=== PATIENT | female | born 1960 | race American Indian/Alaskan Native ===

== ENCOUNTER 2020-03-04 17:02 | Inpatient (IN) | payer MEDICAID ==
[2020-03-04] MEDS ORDERED: IPRATROPIUM 0.02% NEBU 2.5 ML IH ONE ×2 (17:19→18:23)
[2020-03-04] MEDS ORDERED: ALBUTEROL 2.5 MG/3 ML NEBU IH ONE ×2 (17:19→18:23)
--- NOTE | 2020-03-04 17:33 | Emergency Department Report ---
<MONI TALBOT - Last Filed: 03/04/20 19:27> ED Shortness of Breath HPI - General Chief Complaint: Dyspnea/Respdistress Stated Complaint: ASTHMA Time Seen by Provider: 03/04/20 17:12 Source: patient, EMS Mode of arrival: Stretcher Limitations: No Limitations - History of Present Illness Initial Comments: Patient is a 59-year-old female presents emergency room with complaints of shortness of breath that began 2 days ago. She has associated wheezing, cough, chest tightness. She denies any fever, nausea, vomiting, diarrhea. She states that she was evaluated at [facility] 2 days ago for the same symptoms and discharged home. She states that she did 3 nebulizer treatments today without any relief. She denies any home oxygen. She has a past medical history of asthma, COPD, hypertension. No allergies medications. She is a current every day smoker. EMS reports that patient is satting 80% on room air once arriving to the emergency department, patient was given 5 mg of albuterol, 10 mg of dexamethasone IM, and 2 g of magnesium IV - Related Data Allergies Allergy/AdvReac Type Severity Reaction Status Date / Time No Known Allergies Allergy Unverified 03/04/20 17:27 ED Review of Systems Comment: All other systems reviewed and negative ED Past Medical Hx - Past Medical History Previous Medical History?: Yes Hx Hypertension: Yes Hx Headaches / Migraines: Yes Hx Asthma: Yes Hx COPD: Yes - Social History Smoking Status: Current Every Day Smoker Substance Use Type: None ED Physical Exam - General Limitations: No Limitations General appearance: alert, other (moderate distress secondary to SOB) - Head Head exam: Present: atraumatic, normocephalic - Eye Eye exam: Present: normal appearance - ENT ENT exam: Present: mucous membranes dry - Respiratory Respiratory exam: Present: respiratory distress (moderate), wheezes, rhonchi, accessory muscle use. Absent: rales, stridor, chest wall tenderness - Cardiovascular Cardiovascular Exam: Present: regular rate, normal rhythm, normal heart sounds. Absent: systolic murmur, diastolic murmur, rubs, gallop - Neurological Exam Neurological exam: Present: alert, oriented X3 - Psychiatric Psychiatric exam: Present: normal affect, normal mood - Skin Skin exam: Present: warm, dry, intact ED Course - Reevaluation(s) Reevaluation #1: 03/04/20 17:33 pt refused ABG and bipap 03/04/20 19:05 on 3.5 L her oxygen saturation is 100%, still has significant wheezing 03/04/20 19:[address] Gifford, ER attending who advised the patient needs to be admitted for further care 03/04/20 19:[address] Falk, hospitalist advised to admit to oncoming hospitalist 03/04/20 19:[address] Gifford who will accept and resume care of patient and he will speak with hospitalist service ED Medical Decision Making - Lab Data Result diagrams: 03/04/20 17:22 03/04/20 17:22 Lab Results 03/04/20 03/04/20 Range/Units 17:22 17:22 WBC 8.8 (4.5-11.0) K/mm3 RBC 4.95 (3.65-5.03) M/mm3 Hgb 14.2 (10.1-14.3) gm/dl Hct 43.8 H (30.3-42.9) % MCV 88 (79-97) fl MCH 29 (28-32) pg MCHC 33 (30-34) % RDW 14.4 (13.2-15.2) % Plt Count 256 (140-440) K/mm3 Lymph % (Auto) 17.1 (13.4-35.0) % [place]ook[place] % (Auto) 6.8 (0.0-7.3) % Eos % (Auto) 1.2 (0.0-4.3) % Baso % (Auto) 0.7 (0.0-1.8) % Lymph # (Auto) 1.5 (1.2-5.4) K/mm3 [place]ook[place] # (Auto) 0.6 (0.0-0.8) K/mm3 Eos # (Auto) 0.1 (0.0-0.4) K/mm3 Baso # (Auto) 0.1 (0.0-0.1) K/mm3 Seg Neutrophils % 74.2 H (40.0-70.0) % Seg Neutrophils # 6.6 (1.8-7.7) K/mm3 Sodium 137 (137-145) mmol/L Potassium 5.0 (3.6-5.0) mmol/L Chloride 95.2 L (98-107) mmol/L Carbon Dioxide 31 H (22-30) mmol/L Anion Gap 16 mmol/L BUN 18 H (7-17) mg/dL Creatinine 0.8 (0.6-1.2) mg/dL Estimated GFR > 60 ml/min BUN/Creatinine Ratio 23 % Glucose 87 (65-100) mg/dL Calcium 9.7 (8.4-10.2) mg/dL Total Bilirubin 0.40 (0.1-1.2) mg/dL AST 21 (5-40) units/L ALT 16 (7-56) units/L Alkaline Phosphatase 94 (35-129) units/L Total Protein 7.4 (6.3-8.2) g/dL Albumin 4.4 (3.9-5) g/dL Albumin/Globulin Ratio 1.5 % - Radiology Data Radiology results: report reviewed Ordering Physician: JASMEET GREGORIO Date of Service: 03/04/20 Procedure(s): XR chest 1V ap Accession Number(s): [id number] cc: JASMEET GREGORIO Fluoro Time In Minutes: XR chest 1V ap INDICATION / CLINICAL INFORMATION: SOB COMPARISON: None available. FINDINGS: SUPPORT DEVICES: None. HEART / MEDIASTINUM: No significant abnormality. LUNGS / PLEURA: Lungs are clear. Costophrenic sulci are sharp. No pneumothorax. ADDITIONAL FINDINGS: No significant additional findings. IMPRESSION: 1. No acute findings. Signer Name: John Cabrera MD Signed: 03/04/2020 5:46 PM Workstation Name: [id number] Transcribed By: CS Dictated By: John Cabrera MD Electronically Authenticated By: John Cabrera MD Signed Date/Time: 03/04/201745 DD/ 44 TD/TT: - Differential Diagnosis Asthma, COPD, URI, PNA, CHF, pleural effusion, respiratory failure Critical Care Time: Yes Critical care time in (mins) excluding proc time.: 35 Critical Care Time: Critical care time includes multiple medication administrations, multiple reexaminations, consultations, interpretation of diagnostic and laboratory st udies ED Disposition Clinical Impression: COPD exacerbation, Hypoxia Disposition: - OP ADMIT IP TO THIS HOSP Condition: Stable Instructions: Chronic Obstructive Pulmonary Disease (ED) <ELBASHA,MOHAMED HAndrea - Last Filed: 03/04/20 22:05> ED Review of Systems ROS: Stated complaint: ASTHMA Other details as noted in HPI ED Course Vital Signs 03/04/20 03/04/20 03/04/20 17:16 17:21 18:00 Temperature 97.9 F Pulse Rate 101 H 85 Pulse Rate [ Anterior Bilateral Throughout] Respiratory 24 20 Rate Respiratory Rate [Anterior Bilateral Throughout] Blood Pressure 138/89 123/77 O2 Sat by Pulse 76 L 87 100 Oximetry 03/04/20 03/04/20 03/04/20 18:25 19:00 20:00 Temperature Pulse Rate Pulse Rate [ 90 Anterior Bilateral Throughout] Respiratory Rate Respiratory 20 Rate [Anterior Bilateral Throughout] Blood Pressure 124/89 123/77 O2 Sat by Pulse 100 91 Oximetry 03/04/20 03/04/20 03/04/20 21:00 21:30 21:43 Temperature Pulse Rate 96 H 102 H Pulse Rate [ Anterior Bilateral Throughout] Respiratory 18 20 22 Rate Respiratory Rate [Anterior Bilateral Throughout] Blood Pressure 124/89 O2 Sat by Pulse 100 87 100 Oximetry 03/04/20 21:46 Temperature Pulse Rate Pulse Rate [ Anterior Bilateral Throughout] Respiratory Rate Respiratory Rate [Anterior Bilateral Throughout] Blood Pressure O2 Sat by Pulse 100 Oximetry ED Medical Decision Making - Lab Data Result diagrams: 03/04/20 17:22 03/04/20 17:22 - Medical Decision Making Patient is a 59-year-old female presents emergency room with complaints of shortness of breath that began 2 days ago. She has associated wheezing, cough, chest tightness. She denies any fever, nausea, vomiting, diarrhea. She states that she was evaluated at [facility] 2 days ago for the same symptoms and discharged home. She states that she did 3 nebulizer treatments today without any relief. She denies any home oxygen. She has a past medical history of asthma, COPD, hypertension. No allergies medications. She is a current every day smoker. EMS reports that patient is satting 80% on room air once arriving to the emergency department, patient was given 5 mg of albuterol, 10 mg of dexamethasone IM, and 2 g of magnesium IV Labs reviewed and is unremarkable. Chest x-ray is negative for acute finding. Patient symptoms significantly improved with above-mentioned medication. Patient refused ABG and BiPAP. I discussed the patient with Dr. Vega, he agreed to admit the patient to medical service for further management. Critical care attestation.: If time is entered above; I have spent that time in minutes in the direct care of this critically ill patient, excluding procedure time. ED Disposition Is pt being admited?: Yes
--- NOTE | 2020-03-04 17:50 | XRay Report ---
XR chest 1V ap INDICATION / CLINICAL INFORMATION: SOB COMPARISON: None available. FINDINGS: SUPPORT DEVICES: None. HEART / MEDIASTINUM: No significant abnormality. LUNGS / PLEURA: Lungs are clear. Costophrenic sulci are sharp. No pneumothorax. ADDITIONAL FINDINGS: No significant additional findings. IMPRESSION: 1. No acute findings. Signer Name: John Cabrera MD Signed: 03/04/2020 5:46 PM Workstation Name: [id number]
[2020-03-04 18:15] LABS: Basophils # (Auto) 0.1 K/mm3 (0.0-0.1); Basophils % (Auto) 0.7 % (0.0-1.8); Eosinophils # (Auto) 0.1 K/mm3 (0.0-0.4); Eosinophils % (Auto) 1.2 % (0.0-4.3); Hematocrit 43.8 % (30.3-42.9); Hemoglobin 14.2 gm/dl (10.1-14.3); Lymphocytes # (Auto) 1.5 K/mm3 (1.2-5.4); Lymphocytes % (Auto) 17.1 % (13.4-35.0); Mean Corpuscular HGB Conc 33 % (30-34); Mean Corpuscular Volume 88 fl (79-97); Monocytes # (Auto) 0.6 K/mm3 (0.0-0.8); Monocytes % (Auto) 6.8 % (0.0-7.3); Platelet Count 256 K/mm3 (140-440); Red Blood Count 4.95 M/mm3 (3.65-5.03); Red Cell Distribution Width 14.4 % (13.2-15.2)
[2020-03-04 18:34] LABS: Alanine Aminotransferase 16 units/L (7-56); Albumin 4.4 g/dL (3.9-5); BUN/Creatinine Ratio 23; Blood Urea Nitrogen 18 mg/dL (7-17); Calcium 9.7 mg/dL (8.4-10.2); Hemolysis Index 31
[2020-03-04] MEDS ORDERED: MORPHINE 2 MG/1 ML INJ IV PRN (22:19)
[2020-03-04] MEDS ORDERED: MAGNESIUM HYDROXIDE (MOM) ORAL LIQD UDC PO PRN (22:19)
[2020-03-04] MEDS ORDERED: ONDANSETRON 4 MG/2 ML INJ IV PRN (22:19)
[2020-03-04] MEDS ORDERED: ACETAMINOPHEN 325 MG TAB PO PRN (22:19)
--- NOTE | 2020-03-04 22:26 | History and Physical Report ---
History of Present Illness Date of examination: 03/04/20 Date of admission: 03/04/2020 Chief complaint: Shortness of breath History of present illness: 59-year-old -[place] female with known history of hypertension and COPD presenting to the emergency room today complaining of shortness of breath which has been ongoing for the past 2 days. She has had associated cough which is nonproductive and some chest tightness. She denies any fever or chills, no nausea vomiting and no diarrhea. She denies any abdominal pain no hematuria or dysuria. She denies any sick contacts and no recent travel. She denies any contact with anyone with COVID-19. Patient indicates she was evaluated at [facility] few days ago with similar symptoms and discharged home. She has been using her nebulizer treatment without any significant improvement. Upon arrival in the emergency room today she had an O2 saturation in the 80s on room air. Patient had refused to be placed on BiPAP she also refused ABG to be drawn. She however had nebulizing treatments, IV steroid and IV magnesium and placed on Ventimask with significant improvement. Patient continues to smoke about a pack of cigarettes on a daily basis. She has been admitted with COPD exacerbation with hypoxia. Past History Past Medical History: COPD, hypertension, migraines Past Surgical History: No surgical history Social history: smoking (Current daily smoker) Family history: no significant family history Medications and Allergies Allergies Allergy/AdvReac Type Severity Reaction Status Date / Time No Known Allergies Allergy Verified 03/04/20 22:28 Review of Systems Constitutional: no fever, no chills Ears, nose, mouth and throat: no nasal congestion, no sore throat Cardiovascular: no chest pain, no palpitations Respiratory: cough, shortness of breath, wheezing Gastrointestinal: no abdominal pain, no nausea, no vomiting, no diarrhea Genitourinary Female: no flank pain, no dysuria, no hematuria Musculoskeletal: no neck pain, no low back pain Integumentary: no rash, no pruritis Neurological: no headaches, no confusion Psychiatric: no anxiety, no depression Exam - Constitutional Vitals: Temp Pulse Resp BP Pulse Ox 97.9 F 102 H 22 124/89 100 03/04/20 17:21 03/04/20 21:43 03/04/20 21:43 03/04/20 21:00 03/04/20 21:46 General appearance: Present: mild distress, well-nourished - EENT Eyes: Present: PERRL, EOM intact. Absent: scleral icterus ENT: hearing intact, clear oral mucosa, dentition normal - Neck Neck: Present: supple, normal ROM - Respiratory Respiratory effort: labored Respiratory: bilateral: wheezing - Cardiovascular Rhythm: regular Heart Sounds: Present: S1 & S2. Absent: gallop, systolic murmur, diastolic murmur, rub - Extremities Extremities: no ischemia, pulses intact, pulses symmetrical, No edema, Full ROM Peripheral Pulses: within normal limits - Abdominal General gastrointestinal: Present: soft, non-tender, non-distended, normal bowel sounds. Absent: mass - Integumentary Integumentary: Present: clear, warm, dry. Absent: rash - Musculoskeletal Musculoskeletal: strength equal bilaterally - Psychiatric Psychiatric: appropriate mood/affect, intact judgment & insight, memory intact, cooperative - Neurologic Neurologic: CNII-XII intact, no focal deficits, moves all extremities Results - Labs CBC & Chem 7: 03/04/20 17:22 03/04/20 17:22 Labs: Abnormal lab results 03/04/20 03/04/20 Range/Units 17:22 17:22 Hct 43.8 H (30.3-42.9) % Seg Neutrophils % 74.2 H (40.0-70.0) % Chloride 95.2 L (98-107) mmol/L Carbon Dioxide 31 H (22-30) mmol/L BUN 18 H (7-17) mg/dL Assessment and Plan - Patient Problems (1) COPD exacerbation Current Visit: Yes Status: Acute Plan to address problem: Patient started on nebulizing treatments and IV steroid. We will keep O2 saturation greater or equal to 94%. (2) Hypoxia Current Visit: Yes Status: Acute Plan to address problem: Patient currently on Ventimask. She refused to be placed on BiPAP. She also had refused to have ABG drawn. We will keep O2 saturation greater than equal to 92%. (3) DVT prophylaxis Current Visit: Yes Status: Acute Plan to address problem: Patient placed on subcutaneous Lovenox. (4) Full code status Current Visit: Yes Status: Acute
[2020-03-04] MEDS ORDERED: hydrALAZINE 20 MG/1 ML INJ IV PRN (22:54)
[2020-03-05] MEDS ORDERED: IPRATROPIUM/ALBUTEROL SULFATE 3 ML AMPUL.NEB IH ONE (01:42)
[2020-03-05] MEDS ORDERED: HYDROmorphone 1 MG/1 ML INJ ONE ×2 (01:42→04:03)
[2020-03-05] MEDS ORDERED: methylPREDNISolone Sod Succinate 40 MG/1 ML INJ ONE ×3 (01:42→14:02)
[2020-03-05] MEDS: methylPREDNISolone Sod Succinate 40 MG/1 ML INJ IV SCH ×3 (06:02→21:33)
--- NOTE | 2020-03-05 17:39 | Progress Note ---
Assessment and Plan Assessment and plan: COPD exacerbation Cont. on nebulizing treatments and IV steroid. We will keep O2 saturation greater or equal to 94%. Acute Hypoxic respiratory failure Patient currently on Ventimask. She refused to be placed on BiPAP. She also had refused to have ABG drawn. We will keep O2 saturation greater than equal to 92%. HTN Resume BP meds DVT prophylaxis Patient placed on subcutaneous Lovenox. Full code status History Interval history: SOB improved Hospitalist Physical - Constitutional Vitals: Temp Pulse Resp BP Pulse Ox 97.9 F 90 17 124/89 100 03/04/20 17:21 03/04/20 22:00 03/04/20 22:00 03/04/20 22:00 03/04/20 22:00 General appearance: Present: mild distress, well-nourished - EENT Eyes: Present: PERRL, EOM intact ENT: hearing intact, clear oral mucosa, dentition normal - Neck Neck: Present: supple, normal ROM - Respiratory Respiratory effort: normal Respiratory: bilateral: CTA - Cardiovascular Rhythm: regular Heart Sounds: Present: S1 & S2. Absent: gallop, rub - Extremities Extremities: no ischemia, No edema, Full ROM - Abdominal General gastrointestinal: soft, non-tender, non-distended, normal bowel sounds - Integumentary Integumentary: Present: clear, warm, dry - Neurologic Neurologic: CNII-XII intact, moves all extremities Results - Labs CBC & Chem 7: 03/04/20 17:22 03/04/20 17:22 Labs: Laboratory Last Values WBC 8.8 K/mm3 (4.5-11.0) 03/04/20 17: RBC 4.95 M/mm3 (3.65-5.03) 03/04/20 17:22 Hgb 14.2 gm/dl (10.1-14.3) 03/04/20 17: Hct 43.8 % (30.3-42.9) H 03/04/20 17:22 MCV 88 fl (79-97) 03/04/20 17:22 MCH 29 pg (28-32) 03/04/20 17:22 MCHC 33 % (30-34) 03/04/20 17: RDW 14.4 % (13.2-15.2) 03/04/20 17:22 Plt Count 256 K/mm3 (140-440) 03/04/20 17:22 Lymph % (Auto) 17.1 % (13.4-35.0) 03/04/20 17:22 [place] % (Auto) 6.8 % (0.0-7.3) 03/04/20 17:22 Eos % (Auto) 1.2 % (0.0-4.3) 03/04/20 17:22 Baso % (Auto) 0.7 % (0.0-1.8) 03/04/20 17:22 Lymph # (Auto) 1.5 K/mm3 (1.2-5.4) 03/04/20 17:22 [place] # (Auto) 0.6 K/mm3 (0.0-0.8) 03/04/20 17:22 Eos # (Auto) 0.1 K/mm3 (0.0-0.4) 03/04/20 17:22 Baso # (Auto) 0.1 K/mm3 (0.0-0.1) 03/04/20 17:22 Seg Neutrophils % 74.2 % (40.0-70.0) H 03/04/20 17:22 Seg Neutrophils # 6.6 K/mm3 (1.8-7.7) 03/04/20 17:22 Sodium 137 mmol/L (137-145) 03/04/20 17:22 Potassium 5.0 mmol/L (3.6-5.0) 03/04/20 17:22 Chloride 95.2 mmol/L (98-107) L 03/04/20 17:22 Carbon Dioxide 31 mmol/L (22-30) H 03/04/20 17:22 Anion Gap 16 mmol/L 03/04/20 17:22 BUN 18 mg/dL (7-17) H 03/04/20 17:22 Creatinine 0.8 mg/dL (0.6-1.2) 03/04/20 17:22 Estimated GFR > 60 ml/min 03/04/20 17:22 BUN/Creatinine Ratio 23 % 03/04/20 17:22 Glucose 87 mg/dL (65-100) 03/04/20 17:22 Calcium 9.7 mg/dL (8.4-10.2) 03/04/20 17:22 Total Bilirubin 0.40 mg/dL (0.1-1.2) 03/04/20 17:22 AST 21 units/L (5-40) 03/04/20 17:22 ALT 16 units/L (7-56) 03/04/20 17:22 Alkaline Phosphatase 94 units/L (35-129) 03/04/20 17:22 Total Protein 7.4 g/dL (6.3-8.2) 03/04/20 17:22 Albumin 4.4 g/dL (3.9-5) 03/04/20 17:22 Albumin/Globulin Ratio 1.5 % 03/04/20 17:22 Active Medications - Current Medications Current Medications: Generic Name Dose Route Start Last Admin Trade Name Freq PRN Reason Stop Dose Admin Acetaminophen 650 mg 03/04/20 22:19 Tylenol PO Q4H PRN Pain MILD(1-3)/Fever >100.5/CHONG Albuterol/Ipratropium 1 ampul 03/05/20 00:00 Duoneb *Not For Prn Use* IH Q4HRT [facility] Cyclobenzaprine HCl 10 mg 03/05/20 18:00 Flexeril PO 03/05/20 18:01 ONCE ONE Enoxaparin Sodium 40 mg 03/05/20 22:00 Enoxaparin SUB-Q QDAY@2200 [facility] Protocol Hydralazine HCl 10 mg 03/04/20 22:54 Apresoline IV Q4HR PRN Blood Pressure Hydromorphone HCl 0.5 mg 03/05/20 18:00 Dilaudid IV 03/05/20 18:01 ONCE ONE Magnesium Hydroxide 30 ml 03/04/20 22:19 Milk Of Magnesia PO Q4H PRN Constipation Methylprednisolone Sodium Succinate 40 mg 03/05/20 06:00 Solu-Medrol IV Q8HR [facility] Ondansetron HCl 4 mg 03/04/20 22:19 Zofran IV Q8H PRN Nausea And Vomiting Sodium Chloride 10 ml 03/05/20 10:00 Sodium Chloride Flush Syringe 10 Ml IV BID LEE Sodium Chloride 10 ml 03/04/20 22:19 Sodium Chloride Flush Syringe 10 Ml IV PRN PRN LINE FLUSH
[2020-03-05] MEDS: IPRATROPIUM/ALBUTEROL SULFATE 3 ML AMPUL.NEB IH SCH ×2 (17:47→20:51)
[2020-03-05] MEDS ORDERED: CYCLOBENZAPRINE 10 MG TAB PO ONE (18:00)
[2020-03-05] MEDS ORDERED: HYDROmorphone 1 MG/1 ML INJ IV ONE (18:00)
[2020-03-05] MEDS: oxyCODONE /ACETAMINOPHEN 5-325MG TAB PO PRN (21:33)
[2020-03-05] MEDS: ENOXAPARIN 40 MG/0.4 ML INJ SUB-Q SCH (21:34)
[2020-03-06] MEDS: IPRATROPIUM/ALBUTEROL SULFATE 3 ML AMPUL.NEB IH SCH ×7 (00:55→21:51)
[2020-03-06] MEDS: oxyCODONE /ACETAMINOPHEN 5-325MG TAB PO PRN ×3 (05:41→19:58)
[2020-03-06] MEDS: methylPREDNISolone Sod Succinate 40 MG/1 ML INJ IV SCH ×3 (05:42→21:21)
--- NOTE | 2020-03-06 08:18 | Progress Note ---
Assessment and Plan Assessment and plan: COPD exacerbation Cont. on nebulizing treatments and IV steroid. We will keep O2 saturation greater or equal to 94%. Acute Hypoxic respiratory failure Patient currently on Ventimask. She refused to be placed on BiPAP. She also had refused to have ABG drawn. We will keep O2 saturation greater than equal to 92%. HTN Resume BP meds DVT prophylaxis Patient placed on subcutaneous Lovenox. Full code status 03/06/2020. Patient still requiring large amounts of oxygen with Venturi mask 15 L/min FiO2 40%. Continue to wean oxygen as tolerated. Continue IV steroids and bronchodilators/nebulizers. Consult pulmonary for further evaluation. History Interval history: SOB improved Hospitalist Physical - Constitutional Vitals: Temp Pulse Resp BP Pulse Ox 98.2 F 91 H 18 122/72 97 03/05/20 18:27 03/06/20 05:06 03/06/20 05:06 03/05/20 18:27 03/05/20 20:57 General appearance: Present: mild distress, well-nourished - EENT Eyes: Present: PERRL, EOM intact ENT: hearing intact, clear oral mucosa, dentition normal - Neck Neck: Present: supple, normal ROM - Respiratory Respiratory effort: normal Respiratory: bilateral: CTA - Cardiovascular Rhythm: regular Heart Sounds: Present: S1 & S2. Absent: gallop, rub - Extremities Extremities: no ischemia, No edema, Full ROM - Abdominal General gastrointestinal: soft, non-tender, non-distended, normal bowel sounds - Integumentary Integumentary: Present: clear, warm, dry - Neurologic Neurologic: CNII-XII intact, moves all extremities Results - Labs CBC & Chem 7: 03/04/20 17:22 03/04/20 17:22 Labs: Laboratory Last Values WBC 8.8 K/mm3 (4.5-11.0) 03/04/20 17:22 RBC 4.95 M/mm3 (3.65-5.03) 03/04/20 17:22 Hgb 14.2 gm/dl (10.1-14.3) 03/04/20 17:22 Hct 43.8 % (30.3-42.9) H 03/04/20 17:22 MCV 88 fl (79-97) 03/04/20 17:22 MCH 29 pg (28-32) 03/04/20 17:22 MCHC 33 % (30-34) 03/04/20 17:22 RDW 14.4 % (13.2-15.2) 03/04/20 17:22 Plt Count 256 K/mm3 (140-440) 03/04/20 17:22 Lymph % (Auto) 17.1 % (13.4-35.0) 03/04/20 17:22 [place] % (Auto) 6.8 % (0.0-7.3) 03/04/20 17:22 Eos % (Auto) 1.2 % (0.0-4.3) 03/04/20 17:22 Baso % (Auto) 0.7 % (0.0-1.8) 03/04/20 17:22 Lymph # (Auto) 1.5 K/mm3 (1.2-5.4) 03/04/20 17:22 [place] # (Auto) 0.6 K/mm3 (0.0-0.8) 03/04/20 17:22 Eos # (Auto) 0.1 K/mm3 (0.0-0.4) 03/04/20 17:22 Baso # (Auto) 0.1 K/mm3 (0.0-0.1) 03/04/20 17:22 Seg Neutrophils % 74.2 % (40.0-70.0) H 03/04/20 17:22 Seg Neutrophils # 6.6 K/mm3 (1.8-7.7) 03/04/20 17:22 Sodium 137 mmol/L (137-145) 03/04/20 17:22 Potassium 5.0 mmol/L (3.6-5.0) 03/04/20 17:22 Chloride 95.2 mmol/L (98-107) L 03/04/20 17:22 Carbon Dioxide 31 mmol/L (22-30) H 03/04/20 17:22 Anion Gap 16 mmol/L 03/04/20 17:22 BUN 18 mg/dL (7-17) H 03/04/20 17:22 Creatinine 0.8 mg/dL (0.6-1.2) 03/04/20 17:22 Estimated GFR > 60 ml/min 03/04/20 17:22 BUN/Creatinine Ratio 23 % 03/04/20 17:22 Glucose 87 mg/dL (65-100) 03/04/20 17:22 Calcium 9.7 mg/dL (8.4-10.2) 03/04/20 17:22 Total Bilirubin 0.40 mg/dL (0.1-1.2) 03/04/20 17:22 AST 21 units/L (5-40) 03/04/20 17:22 ALT 16 units/L (7-56) 03/04/20 17:22 Alkaline Phosphatase 94 units/L (35-129) 03/04/20 17:22 Total Protein 7.4 g/dL (6.3-8.2) 03/04/20 17:22 Albumin 4.4 g/dL (3.9-5) 03/04/20 17:22 Albumin/Globulin Ratio 1.5 % 03/04/20 17:22 Espinoza/IV: Voiding Method External Female Catheter Active Medications - Current Medications Current Medications: Generic Name Dose Route Start Last Admin Trade Name Freq PRN Reason Stop Dose Admin Acetaminophen 650 mg 03/04/20 22:19 Tylenol PO Q4H PRN Pain MILD(1-3)/Fever >100.5/CHONG Albuterol/Ipratropium 1 ampul 03/05/20 00:00 03/06/20 08:10 Duoneb *Not For Prn Use* IH 1 ampul Q4HRT [facility] Administration Enoxaparin Sodium 40 mg 03/05/20 22:00 03/05/20 21:34 Enoxaparin SUB-Q Not Given QDAY@2200 [facility] Protocol Hydralazine HCl 10 mg 03/04/20 22:54 Apresoline IV Q4HR PRN Blood Pressure Magnesium Hydroxide 30 ml 03/04/20 22:19 Milk Of Magnesia PO Q4H PRN Constipation Methylprednisolone Sodium Succinate 40 mg 03/05/20 06:00 03/06/20 05:42 Solu-Medrol IV 40 mg Q8HR LEE Administration Ondansetron HCl 4 mg 03/04/20 22:19 Zofran IV Q8H PRN Nausea And Vomiting Oxycodone/Acetaminophen 1 tab 03/05/20 17:47 03/06/20 05:41 Percocet 5/325 PO 1 tab Q6H PRN Administration Pain, Moderate (4-6) Sodium Chloride 10 ml 03/05/20 10:00 03/05/20 21:34 Sodium Chloride Flush Syringe 10 Ml IV 10 ml BID LEE Administration Sodium Chloride 10 ml 03/04/20 22:19 Sodium Chloride Flush Syringe 10 Ml IV PRN PRN LINE FLUSH
--- NOTE | 2020-03-06 11:06 | Consultation ---
History of Present Illness Reason for consult: dyspnea, cough, COPD History of present illness: This is a 59 yo AAF w hx of copd who comes in sob. She has had exacerbations in recent past but now has increase in cough and chest congestion without sputum production. Also has wheezing. She refused abg. Feels slightly better but still sob.She has hx of current tobacco abuse Past History Past Medical History: COPD, hypertension, migraines Past Surgical History: No surgical history Social history: smoking (Current daily smoker) Family history: no significant family history Medications and Allergies Allergies Allergy/AdvReac Type Severity Reaction Status Date / Time No Known Allergies Allergy Verified 03/04/20 22:28 Active Meds: Active Medications Acetaminophen (Tylenol) 650 mg PO Q4H PRN PRN Reason: Pain MILD(1-3)/Fever >100.5/CHONG Albuterol/Ipratropium (Duoneb *Not For Prn Use*) 1 ampul IH Q4HRT [facility] Last Admin: 03/06/20 08:10 Dose: 1 ampul Documented by: Enoxaparin Sodium (Enoxaparin) 40 mg SUB-Q QDAY@2200 [facility]; Protocol Last Admin: 03/05/20 21:34 Dose: Not Given Documented by: Hydralazine HCl (Apresoline) 10 mg IV Q4HR PRN PRN Reason: Blood Pressure Magnesium Hydroxide (Milk Of Magnesia) 30 ml PO Q4H PRN PRN Reason: Constipation Methylprednisolone Sodium Succinate (Solu-Medrol) 40 mg IV Q8HR [facility] Last Admin: 03/06/20 05:42 Dose: 40 mg Documented by: Ondansetron HCl (Zofran) 4 mg IV Q8H PRN PRN Reason: Nausea And Vomiting Oxycodone/Acetaminophen (Percocet 5/325) 1 tab PO Q6H PRN PRN Reason: Pain, Moderate (4-6) Last Admin: 03/06/20 05:41 Dose: 1 tab Documented by: Sodium Chloride (Sodium Chloride Flush Syringe 10 Ml) 10 ml IV BID [facility] Last Admin: 03/05/20 21:34 Dose: 10 ml Documented by: Sodium Chloride (Sodium Chloride Flush Syringe 10 Ml) 10 ml IV PRN PRN PRN Reason: LINE FLUSH Review of Systems Constitutional: fatigue Respiratory: cough, shortness of breath, congestion, wheezing, pleurisy Gastrointestinal: indigestion Physical Examination Vital signs: Vital Signs Pulse Ox 76 L 03/04/20 17:16 General appearance: no acute distress, alert Eyes: non-icteric ENT: oropharynx moist Neck: supple Ascultation: Bilateral: wheezes (moderate) Tactile fremitus: Right: other Cardiovascular: regular rate and rhythm Gastrointestinal: normoactive bowel sounds, soft, non-tender, non-distended Integumentary: normal Extremities: no cyanosis Musculoskeletal: no deformities Gait: normal gait normal mental status, non-focal exam mood appropriate, affect normal Results - Laboratory Findings CBC and BMP: 03/04/20 17:22 03/04/20 17:22 Abnormal lab findings: Abnormal Labs 03/04/20 03/04/20 17:22 17:22 Hct 43.8 H Seg Neutrophils % 74.2 H Chloride 95.2 L Carbon Dioxide 31 H BUN 18 H - Diagnostic Findings Chest x-ray: report reviewed, image reviewed Assessment and Plan - Patient Problems (1) Acute respiratory failure with hypoxemia Current Visit: Yes Status: Acute (2) Acute bronchitis Current Visit: Yes Status: Acute (3) COPD exacerbation Current Visit: Yes Status: Acute (4) Hypoxia Current Visit: Yes Status: Acute
[2020-03-06] MEDS ORDERED: BENZONATATE 100 MG CAP PO PRN (11:11)
[2020-03-06] MEDS: ARFORMOTEROL 15 MCG/2 ML NEBU IH SCH ×2 (13:04→21:52)
[2020-03-06] MEDS: BUDESONIDE 0.25 MG/2 ML NEBU IH SCH ×2 (13:05→21:51)
[2020-03-06] MEDS: PROMETHAZINE/CODEINE 6.25-10 MG ORAL LIQD 5 ML PO PRN (21:21)
[2020-03-06] MEDS: ENOXAPARIN 40 MG/0.4 ML INJ SUB-Q SCH (21:21)
[2020-03-07] MEDS: oxyCODONE /ACETAMINOPHEN 5-325MG TAB PO PRN ×3 (02:44→19:14)
[2020-03-07] MEDS: IPRATROPIUM/ALBUTEROL SULFATE 3 ML AMPUL.NEB IH SCH ×4 (02:54→22:05)
[2020-03-07] MEDS: PROMETHAZINE/CODEINE 6.25-10 MG ORAL LIQD 5 ML PO PRN ×3 (03:40→19:15)
[2020-03-07] MEDS: methylPREDNISolone Sod Succinate 40 MG/1 ML INJ IV SCH ×3 (05:14→21:24)
[2020-03-07 06:29] LABS: Basophils % (Auto) 0.3 % (0.0-1.8); Hemoglobin 13.3 gm/dl (10.1-14.3); Lymphocytes # (Auto) 0.5 K/mm3 (1.2-5.4); Lymphocytes % (Auto) 5.7 % (13.4-35.0); Mean Corpuscular HGB Conc 33 % (30-34); Mean Corpuscular Volume 88 fl (79-97); Monocytes # (Auto) 0.3 K/mm3 (0.0-0.8); Monocytes % (Auto) 4.1 % (0.0-7.3); Platelet Count 275 K/mm3 (140-440); Red Blood Count 4.57 M/mm3 (3.65-5.03); Red Cell Distribution Width 14.8 % (13.2-15.2)
[2020-03-07 06:48] LABS: BUN/Creatinine Ratio 26; Blood Urea Nitrogen 18 mg/dL (7-17); Calcium 9.6 mg/dL (8.4-10.2); Hemolysis Index 14
[2020-03-07] MEDS: ARFORMOTEROL 15 MCG/2 ML NEBU IH SCH ×2 (07:41→22:05)
[2020-03-07] MEDS: BUDESONIDE 0.25 MG/2 ML NEBU IH SCH ×2 (07:41→22:05)
--- NOTE | 2020-03-07 17:21 | Progress Note ---
Assessment and Plan Imp: 1. COPD exac. 2. Acute bronchitis 3. Acute respiratory failure, hypoxia 4. Nicotine dependence, cigarettes Rec: 1. Cont. ABX, Solumedrol, Bronchodilators 2. Would check Covid-19 PCR given fever 3. DVT PPx 4. Stop smoking 5. Outpatient PFTs 6. Complex decision-making Plan of care reviewed w/ patient, she understands/agrees Subjective Date of service: 03/07/20 Principal diagnosis: COPD exac. Interval history: No events. Awake, alert, on VM. SOB/wheezing still. Cough with clear to yellow sputum noted. Active Medications Acetaminophen (Tylenol) 650 mg PO Q4H PRN PRN Reason: Pain MILD(1-3)/Fever >100.5/CHONG Albuterol/Ipratropium (Duoneb *Not For Prn Use*) 1 ampul IH Q6HRT [facility] Last Admin: 03/07/20 16:53 Dose: Not Given Documented by: Arformoterol Tartrate (Brovana Nebu) 15 mcg IH Q12HRT [facility] Last Admin: 03/07/20 07:41 Dose: 15 mcg Documented by: Benzonatate (Tessalon Perles) 100 mg PO Q8HR PRN PRN Reason: Cough Budesonide (Pulmicort) 0.25 mg IH Q12HRT [facility] Last Admin: 03/07/20 07:41 Dose: 0.25 mg Documented by: Enoxaparin Sodium (Enoxaparin) 40 mg SUB-Q QDAY@2200 [facility]; Protocol Last Admin: 03/06/20 21:21 Dose: 40 mg Documented by: Hydralazine HCl (Apresoline) 10 mg IV Q4HR PRN PRN Reason: Blood Pressure Levofloxacin (Levaquin) 500 mg PO Q24HR [facility] Stop: 03/12/20 12:00 Magnesium Hydroxide (Milk Of Magnesia) 30 ml PO Q4H PRN PRN Reason: Constipation Methylprednisolone Sodium Succinate (Solu-Medrol) 40 mg IV Q8HR [facility] Last Admin: 03/07/20 14:10 Dose: 40 mg Documented by: Ondansetron HCl (Zofran) 4 mg IV Q8H PRN PRN Reason: Nausea And Vomiting Oxycodone/Acetaminophen (Percocet 5/325) 1 tab PO Q6H PRN PRN Reason: Pain, Moderate (4-6) Last Admin: 03/07/20 09:22 Dose: 1 tab Documented by: Promethazine HCl/Codeine (Phenergan/Codeine 6.25-10 Mg/5ml) 5 ml PO Q6H PRN PRN Reason: Cough Last Admin: 03/07/20 09:39 Dose: 5 ml Documented by: Sodium Chloride (Sodium Chloride Flush Syringe 10 Ml) 10 ml IV BID [facility] Last Admin: 03/07/20 09:05 Dose: 10 ml Documented by: Sodium Chloride (Sodium Chloride Flush Syringe 10 Ml) 10 ml IV PRN PRN PRN Reason: LINE FLUSH Objective Vital Signs - 12hr 03/07/20 03/07/20 03/07/20 05:20 07:29 07:42 Temperature 97.7 F Pulse Rate 102 H Pulse Rate [ 86 106 H Anterior Bilateral Throughout] Respiratory 18 Rate Respiratory 19 20 Rate [Anterior Bilateral Throughout] Blood Pressure 116/98 O2 Sat by Pulse 95 Oximetry 03/07/20 12:17 Temperature 100.8 F H Pulse Rate 104 H Pulse Rate [ Anterior Bilateral Throughout] Respiratory 20 Rate Respiratory Rate [Anterior Bilateral Throughout] Blood Pressure 151/92 O2 Sat by Pulse 97 Oximetry Constitutional: no acute distress, alert Eyes: non-icteric ENT: oropharynx moist Neck: supple Ascultation: Bilateral: wheezes (moderate) Tactile fremitus: Right: other Cardiovascular: regular rate and rhythm Gastrointestinal: normoactive bowel sounds, soft, non-tender, non-distended Integumentary: normal Extremities: no cyanosis Neurologic: normal mental status, non-focal exam Psychiatric: mood appropriate, affect normal CBC and BMP: 03/07/20 06:09 03/07/20 06:09 Abnormal lab findings: Abnormal Labs 03/04/20 03/04/20 03/07/20 17:22 17:22 06:09 Hct 43.8 H Lymph % (Auto) 5.7 L Lymph # (Auto) 0.5 L Seg Neutrophils % 74.2 H 89.9 H Sodium Chloride 95.2 L Carbon Dioxide 31 H BUN 18 H Glucose 03/07/20 06:09 Hct Lymph % (Auto) Lymph # (Auto) Seg Neutrophils % Sodium 136 L Chloride 92.8 L Carbon Dioxide 36 H BUN 18 H Glucose 161 H Chest x-ray: report reviewed
[2020-03-07 18:56] LABS: ABG Base Excess 7.6 mmol/L (-2.0-3.0); ABG Methemoglobin 0.5 % (0.0-1.5); ABG PCO2 61.6 mm Hg; ABG PH 7.372 pH Units (7.350-7.450); ABG PO2 96.2 mm Hg (80.0-90.0)
[2020-03-07] MEDS: ENOXAPARIN 40 MG/0.4 ML INJ SUB-Q SCH (21:22)
[2020-03-08] MEDS: oxyCODONE /ACETAMINOPHEN 5-325MG TAB PO PRN ×3 (02:07→18:02)
[2020-03-08] MEDS: IPRATROPIUM/ALBUTEROL SULFATE 3 ML AMPUL.NEB IH SCH ×5 (03:16→21:24)
[2020-03-08] MEDS: PROMETHAZINE/CODEINE 6.25-10 MG ORAL LIQD 5 ML PO PRN ×3 (03:19→18:03)
[2020-03-08] MEDS: methylPREDNISolone Sod Succinate 40 MG/1 ML INJ IV SCH ×3 (05:33→22:39)
[2020-03-08] MEDS: BUDESONIDE 0.25 MG/2 ML NEBU IH SCH ×2 (07:55→21:24)
[2020-03-08] MEDS: ARFORMOTEROL 15 MCG/2 ML NEBU IH SCH ×2 (07:55→21:24)
[2020-03-08] MEDS: levoFLOXacin 500 MG TAB PO SCH (10:00)
--- NOTE | 2020-03-08 10:03 | Progress Note ---
Assessment and Plan - Patient Problems (1) Acute respiratory failure with hypoxemia Current Visit: Yes Status: Acute (2) Acute bronchitis Current Visit: Yes Status: Acute (3) COPD exacerbation Current Visit: Yes Status: Acute (4) Hypoxia Current Visit: Yes Status: Acute (5) Cough Current Visit: Yes Status: Acute (6) COVID-19 Current Visit: Yes Status: Suspected Subjective Principal diagnosis: COPD exac. Interval history: still with cough Objective Vital Signs - 12hr 03/07/20 03/07/20 03/08/20 22:09 22:29 03:00 Temperature 99.0 F Pulse Rate 109 H 98 H Pulse Rate [ 90 Anterior Bilateral Throughout] Respiratory 22 Rate Respiratory 20 Rate [Anterior Bilateral Throughout] Blood Pressure 141/94 O2 Sat by Pulse 95 Oximetry 03/08/20 03/08/20 03/08/20 03:16 05:04 07:55 Temperature 98.3 F Pulse Rate 81 Pulse Rate [ 98 H 100 H Anterior Bilateral Throughout] Respiratory 20 Rate Respiratory 20 20 Rate [Anterior Bilateral Throughout] Blood Pressure 136/86 O2 Sat by Pulse 100 98 Oximetry Constitutional: no acute distress, alert Eyes: non-icteric ENT: oropharynx moist Neck: supple Ascultation: Bilateral: wheezes (mild) Tactile fremitus: Right: other Cardiovascular: regular rate and rhythm Gastrointestinal: normoactive bowel sounds, soft, non-tender, non-distended Integumentary: normal Extremities: no cyanosis Neurologic: normal mental status, non-focal exam Psychiatric: mood appropriate, affect normal CBC and BMP: 03/07/20 06:09 03/07/20 06:09 ABG, PT/INR, D-dimer: ABG ABG pH 7.372 pH Units (7.350-7.450) 03/07/20 18:25 ABG pCO2 61.6 mm Hg 03/07/20 18:25 ABG pO2 96.2 mm Hg (80.0-90.0) H 03/07/20 18:25 ABG O2 Saturation 97.0 % (95.0-99.0) 03/07/20 18:25 Abnormal lab findings: Abnormal Labs 03/04/20 03/04/20 03/07/20 17:22 17:22 06:09 Hct 43.8 H Lymph % (Auto) 5.7 L Lymph # (Auto) 0.5 L Seg Neutrophils % 74.2 H 89.9 H ABG pO2 ABG HCO3 ABG Base Excess Sodium Chloride 95.2 L Carbon Dioxide 31 H BUN 18 H Glucose 03/07/20 03/07/20 06:09 18:25 Hct Lymph % (Auto) Lymph # (Auto) Seg Neutrophils % ABG pO2 96.2 H ABG HCO3 35.0 H ABG Base Excess 7.6 H Sodium 136 L Chloride 92.8 L Carbon Dioxide 36 H BUN 18 H Glucose 161 H
[2020-03-08 11:39] LABS: BUN/Creatinine Ratio 25; Blood Urea Nitrogen 20 mg/dL (7-17); Calcium 9.5 mg/dL (8.4-10.2); Hemolysis Index 7
--- NOTE | 2020-03-08 17:27 | Progress Note ---
Assessment and Plan - Patient Problems (1) COPD exacerbation Current Visit: Yes Status: Acute Plan to address problem: Patient was hypoxic in the ED and refused her BiPAP however marked improvement was noted on Ventimask Supplemental oxygen as needed Corey Campbell DuoNeb scheduled IV steroid therapy Pulmonary consult Pulmonary hygiene EMMANUEL Brito (2) Acute respiratory failure with hypoxemia Current Visit: Yes Status: Acute Plan to address problem: On presentation patient was satting in the 80s on room air in the ED Supplemental oxygen as needed Pulmonary hygiene Trend SPO2 (3) COVID-19 Current Visit: Yes Status: Ruled-out Plan to address problem: 03/08 COVID-19 PCR negative (4) Hyponatremia Current Visit: Yes Status: Acute Plan to address problem: Admit sodium on 03/04 was 137 03/07 and 03/08 sodium 136 Slight decrease Continue to monitor neuro checks Trend BMP (5) Hypochloremia Current Visit: Yes Status: Acute Plan to address problem: Admit chloride 95.2, 03/07 92.8, 03/08 91.2 Continue to monitor Trend BMP (6) Hypertension Current Visit: Yes Status: Chronic Plan to address problem: Home medications reviewed, patient has no home medications listed, will ask nurse to update 03/08 started on Amlodipine low-dose, titrate as needed As needed IV hydralazine for SBP greater than 160 Blood pressure monitor per protocol (7) DVT prophylaxis Current Visit: Yes Status: Acute Plan to address problem: SCDs to bilateral extremities while in bed Lovenox subcu History Interval history: 59-year-old -[place] female with HTN, COPD, current cigarette smoker of 1 PPD presented to the emergency department on 03/05 with complaints of shortness of breath ongoing for 2 days with an associated nonproductive cough, chest tightness and without improvement with 10 days of treatment. Patient states that she was discharged from OSH few days before presentation. Upon arrival to the emergency department she had acute hypoxemic respiratory failure with SPO2 in the 80s on room air. She refused to be placed on BiPAP and refused ABG however she had nebulizing treatments, IV steroids and IV magnesium and was placed on a Ventimask with significant improvement. Patient was admitted to the hospital with COPD exacerbation and acute hypoxic respiratory failure. Today on examination she has her Ventimask in place. Her COVID-19 PCR resulted as negative today. Patient states that she feels better. 03/05: patient remained on the Ventimask and continue to refuse her BiPAP and ABG. 03/06: Ventimask 40% / 15 L, pulmonary consulted Hospitalist Physical - Constitutional Vitals: Temp Pulse Resp BP Pulse Ox 97.8 F 91 H 18 151/96 100 03/08/20 16:14 03/08/20 16:14 03/08/20 16:14 03/08/20 16:14 03/08/20 16:14 General appearance: Present: no acute distress, well-nourished - EENT Eyes: Present: PERRL, EOM intact ENT: hearing intact, clear oral mucosa - Neck Neck: Present: supple, normal ROM - Respiratory Respiratory effort: normal Respiratory: bilateral: diminished - Cardiovascular Rhythm: regular Heart Sounds: Present: S1 & S2. Absent: systolic murmur, diastolic murmur - Extremities Extremities: no ischemia, pulses intact, pulses symmetrical, No edema, normal temperature, normal color, Full ROM Peripheral Pulses: within normal limits - Abdominal General gastrointestinal: soft, non-tender, non-distended, normal bowel sounds - Integumentary Integumentary: Present: clear, warm, dry - Psychiatric Psychiatric: cooperative - Neurologic Neurologic: CNII-XII intact, no focal deficits, moves all extremities Results - Labs CBC & Chem 7: 03/07/20 06:09 03/08/20 10:54 Labs: Laboratory Last Values WBC 8.1 K/mm3 (4.5-11.0) 03/07/20 06:09 RBC 4.57 M/mm3 (3.65-5.03) 03/07/20 06:09 Hgb 13.3 gm/dl (10.1-14.3) 03/07/20 06:09 Hct 40.0 % (30.3-42.9) 03/07/20 06:09 MCV 88 fl (79-97) 03/07/20 06:09 MCH 29 pg (28-32) 03/07/20 06:09 MCHC 33 % (30-34) 03/07/20 06:09 RDW 14.8 % (13.2-15.2) 03/07/20 06:09 Plt Count 275 K/mm3 (140-440) 03/07/20 06:09 Lymph % (Auto) 5.7 % (13.4-35.0) L 03/07/20 06:09 [place] % (Auto) 4.1 % (0.0-7.3) 03/07/20 06:09 Eos % (Auto) 0.0 % (0.0-4.3) 03/07/20 06:09 Baso % (Auto) 0.3 % (0.0-1.8) 03/07/20 06:09 Lymph # (Auto) 0.5 K/mm3 (1.2-5.4) L 03/07/20 06:09 [place] # (Auto) 0.3 K/mm3 (0.0-0.8) 03/07/20 06:09 Eos # (Auto) 0.0 K/mm3 (0.0-0.4) 03/07/20 06:09 Baso # (Auto) 0.0 K/mm3 (0.0-0.1) 03/07/20 06:09 Seg Neutrophils % 89.9 % (40.0-70.0) H 03/07/20 06:09 Seg Neutrophils # 7.2 K/mm3 (1.8-7.7) 03/07/20 06:09 ABG pH 7.372 pH Units (7.350-7.450) 03/07/20 18:25 ABG pCO2 61.6 mm Hg 03/07/20 18:25 ABG pO2 96.2 mm Hg (80.0-90.0) H 03/07/20 18:25 ABG HCO3 35.0 mmol/L (20.0-26.0) H 03/07/20 18:25 ABG O2 Saturation 97.0 % (95.0-99.0) 03/07/20 18:25 ABG O2 Content 18.4 (0.0-44) 03/07/20 18:25 ABG Base Excess 7.6 mmol/L (-2.0-3.0) H 03/07/20 18:25 ABG Hemoglobin 13.7 gm/dl (12.0-16.0) 03/07/20 18:25 ABG Carboxyhemoglobin 1.2 % (0.0-5.0) 03/07/20 18:25 ABG Methemoglobin 0.5 % (0.0-1.5) 03/07/20 18:25 Oxyhemoglobin 95.4 % (95.0-99.0) 03/07/20 18:25 FiO2 31 % 03/07/20 18:25 Sodium 136 mmol/L (137-145) L 03/08/20 10:54 Potassium 4.3 mmol/L (3.6-5.0) 03/08/20 10:54 Chloride 91.2 mmol/L (98-107) L 03/08/20 10:54 Carbon Dioxide 37 mmol/L (22-30) H 03/08/20 10:54 Anion Gap 12 mmol/L 03/08/20 10:54 BUN 20 mg/dL (7-17) H 03/08/20 10:54 Creatinine 0.8 mg/dL (0.6-1.2) 03/08/20 10:54 Estimated GFR > 60 ml/min 03/08/20 10:54 BUN/Creatinine Ratio 25 % 03/08/20 10:54 Glucose 204 mg/dL (65-100) H 03/08/20 10:54 Calcium 9.5 mg/dL (8.4-10.2) 03/08/20 10:54 Total Bilirubin 0.40 mg/dL (0.1-1.2) 03/04/20 17:22 AST 21 units/L (5-40) 03/04/20 17:22 ALT 16 units/L (7-56) 03/04/20 17:22 Alkaline Phosphatase 94 units/L (35-129) 03/04/20 17:22 Total Protein 7.4 g/dL (6.3-8.2) 03/04/20 17:22 Albumin 4.4 g/dL (3.9-5) 03/04/20 17:22 Albumin/Globulin Ratio 1.5 % 03/04/20 17:22 Coronavirus (PCR) Negative (Negative) 03/08/20 Unknown Espinoza/IV: Voiding Method Toilet IV Catheter Type [Left Hand] INT / Saline Lock Active Medications - Current Medications Current Medications: Generic Name Dose Route Start Last Admin Trade Name Freq PRN Reason Stop Dose Admin Acetaminophen 650 mg 03/04/20 22:19 Tylenol PO Q4H PRN Pain MILD(1-3)/Fever >100.5/CHONG Albuterol/Ipratropium 1 ampul 03/06/20 20:00 03/08/20 17:04 Duoneb *Not For Prn Use* IH 1 ampul Q6HRT [facility] Administration Arformoterol Tartrate 15 mcg 03/06/20 11:15 03/08/20 07:55 Brovana Nebu IH 15 mcg Q12HRT [facility] Administration Benzonatate 100 mg 03/06/20 11:11 Tessalon Perles PO Q8HR PRN Cough Budesonide 0.25 mg 03/06/20 11:15 03/08/20 07:55 Pulmicort IH 0.25 mg Q12HRT [facility] Administration Enoxaparin Sodium 40 mg 03/05/20 22:00 03/07/20 21:22 Enoxaparin SUB-Q Not Given QDAY@2200 [facility] Protocol Hydralazine HCl 10 mg 03/04/20 22:54 Apresoline IV Q4HR PRN Blood Pressure Levofloxacin 500 mg 03/08/20 10:00 03/08/20 10:00 Levaquin PO 03/12/20 12:00 500 mg Q24HR [facility] Administration Magnesium Hydroxide 30 ml 03/04/20 22:19 Milk Of Magnesia PO Q4H PRN Constipation Methylprednisolone Sodium Succinate 40 mg 03/05/20 06:00 03/08/20 14:39 Solu-Medrol IV 40 mg Q8HR [facility] Administration Ondansetron HCl 4 mg 03/04/20 22:19 Zofran IV Q8H PRN Nausea And Vomiting Oxycodone/Acetaminophen 1 tab 03/05/20 17:47 03/08/20 11:10 Percocet 5/325 PO 1 tab Q6H PRN Administration Pain, Moderate (4-6) Promethazine HCl/Codeine 5 ml 03/06/20 11:10 03/08/20 11:10 Phenergan/Codeine 6.25-10 Mg/5ml PO 5 ml Q6H PRN Administration Cough Sodium Chloride 10 ml 03/05/20 10:00 03/08/20 10:00 Sodium Chloride Flush Syringe 10 Ml IV 10 ml BID [facility] Administration Sodium Chloride 10 ml 03/04/20 22:19 Sodium Chloride Flush Syringe 10 Ml IV PRN PRN LINE FLUSH
[2020-03-08] MEDS ORDERED: amLODIPine 5 MG TAB PO SCH (18:00)
[2020-03-08] MEDS: ENOXAPARIN 40 MG/0.4 ML INJ SUB-Q SCH (22:39)
[2020-03-08] MEDS: amLODIPine 5 MG TAB PO SCH (22:39)
[2020-03-09] MEDS: oxyCODONE /ACETAMINOPHEN 5-325MG TAB PO PRN ×3 (00:09→22:08)
[2020-03-09] MEDS: PROMETHAZINE/CODEINE 6.25-10 MG ORAL LIQD 5 ML PO PRN ×3 (01:19→21:04)
[2020-03-09] MEDS: IPRATROPIUM/ALBUTEROL SULFATE 3 ML AMPUL.NEB IH SCH ×4 (03:25→20:42)
[2020-03-09 05:07] LABS: Blood Urea Nitrogen 22 mg/dL (7-17); Calcium 9.6 mg/dL (8.4-10.2); Hemolysis Index 39
[2020-03-09 05:15] LABS: BUN/Creatinine Ratio 31
[2020-03-09] MEDS: methylPREDNISolone Sod Succinate 40 MG/1 ML INJ IV SCH ×3 (05:51→21:05)
[2020-03-09] MEDS: amLODIPine 5 MG TAB PO SCH (09:00)
[2020-03-09] MEDS: levoFLOXacin 500 MG TAB PO SCH (09:00)
[2020-03-09] MEDS: BUDESONIDE 0.25 MG/2 ML NEBU IH SCH ×2 (09:34→20:42)
[2020-03-09] MEDS: ARFORMOTEROL 15 MCG/2 ML NEBU IH SCH ×2 (09:35→20:42)
--- NOTE | 2020-03-09 13:55 | Progress Note ---
Assessment and Plan Impression: Imp: 1. COPD exac. 2. Acute bronchitis 3. Acute respiratory failure, hypoxia and hypercapnia 4. Nicotine dependence, cigarettes Rec: 1. Cont. ABX, Solumedrol, Bronchodilators 2. Would check Covid-19 PCR given fever 3. DVT PPx 4. Stop smoking 5. Outpatient PFTs Subjective Date of service: 03/09/20 Principal diagnosis: COPD exac. Interval history: Patient reports feeling better with improving shortness of breath. Still very dyspneic on exertion. Still on O2 Objective Vital Signs - 12hr 03/09/20 03/09/20 03/09/20 03:00 04:56 05:50 Pulse Rate 85 87 Pulse Rate [ 94 H Anterior Bilateral Throughout] Pulse Rate [ Posterior Bilateral Throughout] Respiratory 20 18 Rate Respiratory 18 Rate [Anterior Bilateral Throughout] Respiratory Rate [Posterior Bilateral Throughout] Blood Pressure 142/76 O2 Sat by Pulse 91 99 Oximetry 03/09/20 03/09/20 03/09/20 09:00 09:38 09:40 Pulse Rate 87 Pulse Rate [ Anterior Bilateral Throughout] Pulse Rate [ 101 H Posterior Bilateral Throughout] Respiratory Rate Respiratory Rate [Anterior Bilateral Throughout] Respiratory 18 Rate [Posterior Bilateral Throughout] Blood Pressure 142/76 O2 Sat by Pulse 96 Oximetry Constitutional: no acute distress, alert Eyes: non-icteric ENT: oropharynx moist Neck: supple Ascultation: Bilateral: wheezes (mild) Tactile fremitus: Right: other Cardiovascular: regular rate and rhythm Gastrointestinal: normoactive bowel sounds, soft, non-tender, non-distended Integumentary: normal Extremities: no cyanosis Neurologic: normal mental status, non-focal exam Psychiatric: mood appropriate, affect normal CBC and BMP: 03/07/20 06:09 03/09/20 04:27 ABG, PT/INR, D-dimer: ABG ABG pH 7.372 pH Units (7.350-7.450) 03/07/20 18:25 ABG pCO2 61.6 mm Hg 03/07/20 18:25 ABG pO2 96.2 mm Hg (80.0-90.0) H 03/07/20 18:25 ABG O2 Saturation 97.0 % (95.0-99.0) 03/07/20 18:25 Abnormal lab findings: Abnormal Labs 03/04/20 03/04/20 03/07/20 17:22 17:22 06:09 Hct 43.8 H Lymph % (Auto) 5.7 L Lymph # (Auto) 0.5 L Seg Neutrophils % 74.2 H 89.9 H ABG pO2 ABG HCO3 ABG Base Excess Sodium Chloride 95.2 L Carbon Dioxide 31 H BUN 18 H Glucose 03/07/20 03/07/20 03/08/20 06:09 18:25 10:54 Hct Lymph % (Auto) Lymph # (Auto) Seg Neutrophils % ABG pO2 96.2 H ABG HCO3 35.0 H ABG Base Excess 7.6 H Sodium 136 L 136 L Chloride 92.8 L 91.2 L Carbon Dioxide 36 H 37 H BUN 18 H 20 H Glucose 161 H 204 H 03/09/20 04:27 Hct Lymph % (Auto) Lymph # (Auto) Seg Neutrophils % ABG pO2 ABG HCO3 ABG Base Excess Sodium Chloride 94.9 L Carbon Dioxide 34 H BUN 22 H Glucose 150 H
[2020-03-09] MEDS: ENOXAPARIN 40 MG/0.4 ML INJ SUB-Q SCH (21:13)
[2020-03-10] MEDS: MELATONIN 5 MG TAB PO PRN ×2 (00:10→22:42)
[2020-03-10] MEDS ORDERED: CYCLOBENZAPRINE 10 MG TAB PO ONE (00:15)
[2020-03-10] MEDS: IPRATROPIUM/ALBUTEROL SULFATE 3 ML AMPUL.NEB IH SCH ×4 (02:25→21:37)
[2020-03-10] MEDS: methylPREDNISolone Sod Succinate 40 MG/1 ML INJ IV SCH (05:48)
[2020-03-10] MEDS: BUDESONIDE 0.25 MG/2 ML NEBU IH SCH ×2 (07:42→21:37)
[2020-03-10] MEDS: ARFORMOTEROL 15 MCG/2 ML NEBU IH SCH ×2 (07:43→21:37)
[2020-03-10] MEDS: amLODIPine 5 MG TAB PO SCH ×2 (08:47→14:49)
[2020-03-10] MEDS: levoFLOXacin 500 MG TAB PO SCH ×2 (08:47→14:48)
[2020-03-10] MEDS: oxyCODONE /ACETAMINOPHEN 5-325MG TAB PO PRN ×2 (08:48→15:20)
[2020-03-10] MEDS: PROMETHAZINE/CODEINE 6.25-10 MG ORAL LIQD 5 ML PO PRN ×3 (09:04→22:42)
--- NOTE | 2020-03-10 12:30 | Progress Note ---
Assessment and Plan Impression: Imp: 1. COPD exac. 2. Acute bronchitis 3. Acute respiratory failure, hypoxia and hypercapnia 4. Nicotine dependence, cigarettes Rec: 1. Cont. ABX, Solumedrol, Bronchodilators. Taper steroids switch over to prednisone tomorrow 2. Would check Covid-19 PCR given fever 3. DVT PPx 4. Stop smoking 5. Outpatient PFTs Subjective Date of service: 03/10/20 Principal diagnosis: COPD exac. Interval history: Patient reports feeling better with improving shortness of breath. Still dyspneic on exertion. Comfortable on room air Objective Vital Signs - 12hr 03/10/20 03/10/20 03/10/20 02:26 02:40 05:18 Temperature 97.7 F Pulse Rate 96 H Pulse Rate [ 92 H Anterior Bilateral Throughout] Pulse Rate [ 92 H Posterior Bilateral Throughout] Respiratory 20 Rate Respiratory 18 Rate [Anterior Bilateral Throughout] Respiratory 18 Rate [Posterior Bilateral Throughout] Blood Pressure 152/94 O2 Sat by Pulse 99 Oximetry 03/10/20 03/10/20 03/10/20 08:10 08:24 08:47 Temperature Pulse Rate 96 H Pulse Rate [ Anterior Bilateral Throughout] Pulse Rate [ 96 H Posterior Bilateral Throughout] Respiratory Rate Respiratory Rate [Anterior Bilateral Throughout] Respiratory 20 Rate [Posterior Bilateral Throughout] Blood Pressure 150/84 O2 Sat by Pulse 99 Oximetry 03/10/20 10:00 Temperature Pulse Rate Pulse Rate [ Anterior Bilateral Throughout] Pulse Rate [ Posterior Bilateral Throughout] Respiratory Rate Respiratory Rate [Anterior Bilateral Throughout] Respiratory Rate [Posterior Bilateral Throughout] Blood Pressure O2 Sat by Pulse 98 Oximetry Constitutional: no acute distress, alert Eyes: non-icteric ENT: oropharynx moist Neck: supple Ascultation: Bilateral: wheezes (mild) Tactile fremitus: Right: other Cardiovascular: regular rate and rhythm Gastrointestinal: normoactive bowel sounds, soft, non-tender, non-distended Integumentary: normal Extremities: no cyanosis Neurologic: normal mental status, non-focal exam Psychiatric: mood appropriate, affect normal CBC and BMP: 03/07/20 06:09 03/09/20 04:27 ABG, PT/INR, D-dimer: ABG ABG pH 7.372 pH Units (7.350-7.450) 03/07/20 18:25 ABG pCO2 61.6 mm Hg 03/07/20 18:25 ABG pO2 96.2 mm Hg (80.0-90.0) H 03/07/20 18:25 ABG O2 Saturation 97.0 % (95.0-99.0) 03/07/20 18:25 Abnormal lab findings: Abnormal Labs 03/04/20 03/04/20 03/07/20 17:22 17:22 06:09 Hct 43.8 H Lymph % (Auto) 5.7 L Lymph # (Auto) 0.5 L Seg Neutrophils % 74.2 H 89.9 H ABG pO2 ABG HCO3 ABG Base Excess Sodium Chloride 95.2 L Carbon Dioxide 31 H BUN 18 H Glucose 03/07/20 03/07/20 03/08/20 06:09 18:25 10:54 Hct Lymph % (Auto) Lymph # (Auto) Seg Neutrophils % ABG pO2 96.2 H ABG HCO3 35.0 H ABG Base Excess 7.6 H Sodium 136 L 136 L Chloride 92.8 L 91.2 L Carbon Dioxide 36 H 37 H BUN 18 H 20 H Glucose 161 H 204 H 03/09/20 04:27 Hct Lymph % (Auto) Lymph # (Auto) Seg Neutrophils % ABG pO2 ABG HCO3 ABG Base Excess Sodium Chloride 94.9 L Carbon Dioxide 34 H BUN 22 H Glucose 150 H
--- NOTE | 2020-03-10 12:42 | Progress Note ---
Assessment and Plan (1) COPD exacerbation Current Visit: Yes Status: Acute Plan to address problem: Patient was hypoxic in the ED and refused her BiPAP however marked improvement was noted on Ventimask Supplemental oxygen as needed Corey Campbell DuoNeb scheduled IV steroid therapy Pulmonary consult Pulmonary hygiene EMMANUEL Brito (2) Acute respiratory failure with hypoxemia Current Visit: Yes Status: Acute Plan to address problem: On presentation patient was satting in the 80s on room air in the ED Supplemental oxygen as needed Pulmonary hygiene Trend SPO2 (3) COVID-19 Current Visit: Yes Status: Ruled-out Plan to address problem: 03/08 COVID-19 PCR negative (4) Hyponatremia Current Visit: Yes Status: Acute Plan to address problem: Admit sodium on 03/04 was 137 03/07 and 03/08 sodium 136 Slight decrease Continue to monitor neuro checks Trend BMP (5) Hypochloremia Current Visit: Yes Status: Acute Plan to address problem: Admit chloride 95.2, 03/07 92.8, 03/08 91.2 Continue to monitor Trend BMP (6) Hypertension Current Visit: Yes Status: Chronic Plan to address problem: Home medications reviewed, patient has no home medications listed, will ask nurse to update 03/08 started on Amlodipine low-dose, titrate as needed As needed IV hydralazine for SBP greater than 160 Blood pressure monitor per protocol (7) DVT prophylaxis Current Visit: Yes Status: Acute Plan to address problem: SCDs to bilateral extremities while in bed Lovenox subcu Subjective Date of service: 03/09/20 Principal diagnosis: COPD exac. Interval history: Patient continues to be wheezing. Some improvement Objective - Constitutional Vitals: Vital Signs - 12hr 03/10/20 03/10/20 03/10/20 02:26 02:40 05:18 Temperature 97.7 F Pulse Rate 96 H Pulse Rate [ 92 H Anterior Bilateral Throughout] Pulse Rate [ 92 H Posterior Bilateral Throughout] Respiratory 20 Rate Respiratory 18 Rate [Anterior Bilateral Throughout] Respiratory 18 Rate [Posterior Bilateral Throughout] Blood Pressure 152/94 O2 Sat by Pulse 99 Oximetry 03/10/20 03/10/20 03/10/20 08:10 08:24 08:47 Temperature Pulse Rate 96 H Pulse Rate [ Anterior Bilateral Throughout] Pulse Rate [ 96 H Posterior Bilateral Throughout] Respiratory Rate Respiratory Rate [Anterior Bilateral Throughout] Respiratory 20 Rate [Posterior Bilateral Throughout] Blood Pressure 150/84 O2 Sat by Pulse 99 Oximetry 03/10/20 10:00 Temperature Pulse Rate Pulse Rate [ Anterior Bilateral Throughout] Pulse Rate [ Posterior Bilateral Throughout] Respiratory Rate Respiratory Rate [Anterior Bilateral Throughout] Respiratory Rate [Posterior Bilateral Throughout] Blood Pressure O2 Sat by Pulse 98 Oximetry General appearance: Present: mild distress, well-nourished - EENT Eyes: PERRL, EOM intact ENT: hearing intact, clear oral mucosa Ears: bilateral: normal - Neck Neck: supple, normal ROM - Respiratory Respiratory effort: normal Respiratory: bilateral: CTA, negative: rhonchi, wheezing - Breasts Breasts: normal - Cardiovascular Heart rate: 78 Rhythm: regular Heart Sounds: Present: S1 & S2. Absent: gallop, rub Extremities: pulses intact, No edema, normal color, Full ROM - Gastrointestinal General gastrointestinal: Present: soft, non-tender, non-distended, normal bowel sounds - Genitourinary Female genitourinary: normal - Integumentary Integumentary: clear, warm, dry - Musculoskeletal Musculoskeletal: 1, strength equal bilaterally - Neurologic Neurologic: moves all extremities - Psychiatric Psychiatric: memory intact, appropriate mood/affect, intact judgment & insight - Allied health notes Allied health notes reviewed: nursing, case management - Labs CBC & Chem 7: 03/07/20 06:09 03/09/20 04:27
--- NOTE | 2020-03-10 12:48 | Progress Note ---
Assessment and Plan (1) COPD exacerbation Current Visit: Yes Status: Acute Plan to address problem: Patient was hypoxic in the ED and refused her BiPAP however marked improvement was noted on Ventimask Supplemental oxygen as needed Corey Campbell DuoNeb scheduled IV steroid therapy Pulmonary consult Pulmonary hygiene [facility] Patient still wheezing Possible discharge tomorrow if symptomatically much improved (2) Acute respiratory failure with hypoxemia Current Visit: Yes Status: Acute Plan to address problem: On presentation patient was satting in the 80s on room air in the ED Supplemental oxygen as needed Pulmonary hygiene Trend SPO2 (3) COVID-19 Current Visit: Yes Status: Ruled-out Plan to address problem: 03/08 COVID-19 PCR negative (4) Hyponatremia Current Visit: Yes Status: Acute Plan to address problem: Admit sodium on 03/04 was 137 03/07 and 03/08 sodium 136 Slight decrease Continue to monitor neuro checks Trend BMP (5) Hypochloremia Current Visit: Yes Status: Acute Plan to address problem: Admit chloride 95.2, 03/07 92.8, 03/08 91.2 Continue to monitor Trend BMP (6) Hypertension Current Visit: Yes Status: Chronic Plan to address problem: Home medications reviewed, patient has no home medications listed, will ask nurse to update 03/08 started on Amlodipine low-dose, titrate as needed As needed IV hydralazine for SBP greater than 160 Blood pressure monitor per protocol (7) DVT prophylaxis Current Visit: Yes Status: Acute Plan to address problem: SCDs to bilateral extremities while in bed Lovenox subcu Subjective Date of service: 03/10/20 Principal diagnosis: COPD exac. Interval history: Patient continues to be wheezing. Some improvement Patient still wheezing and tachypneic Low-grade fever Objective - Constitutional Vitals: Vital Signs - 12hr 03/10/20 03/10/20 03/10/20 02:26 02:40 05:18 Temperature 97.7 F Pulse Rate 96 H Pulse Rate [ 92 H Anterior Bilateral Throughout] Pulse Rate [ 92 H Posterior Bilateral Throughout] Respiratory 20 Rate Respiratory 18 Rate [Anterior Bilateral Throughout] Respiratory 18 Rate [Posterior Bilateral Throughout] Blood Pressure 152/94 O2 Sat by Pulse 99 Oximetry 03/10/20 03/10/20 03/10/20 08:10 08:24 08:47 Temperature Pulse Rate 96 H Pulse Rate [ Anterior Bilateral Throughout] Pulse Rate [ 96 H Posterior Bilateral Throughout] Respiratory Rate Respiratory Rate [Anterior Bilateral Throughout] Respiratory 20 Rate [Posterior Bilateral Throughout] Blood Pressure 150/84 O2 Sat by Pulse 99 Oximetry 03/10/20 10:00 Temperature Pulse Rate Pulse Rate [ Anterior Bilateral Throughout] Pulse Rate [ Posterior Bilateral Throughout] Respiratory Rate Respiratory Rate [Anterior Bilateral Throughout] Respiratory Rate [Posterior Bilateral Throughout] Blood Pressure O2 Sat by Pulse 98 Oximetry General appearance: Present: mild distress, well-nourished - EENT Eyes: PERRL, EOM intact ENT: hearing intact, clear oral mucosa Ears: bilateral: normal - Neck Neck: supple, normal ROM - Respiratory Respiratory effort: normal Respiratory: bilateral: CTA, rhonchi, wheezing - Breasts Breasts: normal - Cardiovascular Heart rate: 78 Rhythm: regular Heart Sounds: Present: S1 & S2. Absent: gallop, rub Extremities: pulses intact, No edema, normal color, Full ROM - Gastrointestinal General gastrointestinal: Present: soft, non-tender, non-distended, normal bowel sounds - Genitourinary Female genitourinary: normal - Integumentary Integumentary: clear, warm, dry - Musculoskeletal Musculoskeletal: 1, strength equal bilaterally - Neurologic Neurologic: moves all extremities - Psychiatric Psychiatric: memory intact, appropriate mood/affect, intact judgment & insight - Labs CBC & Chem 7: 03/07/20 06:09 03/09/20 04:27
[2020-03-10] MEDS ORDERED: CYCLOBENZAPRINE 10 MG TAB PO PRN (18:48)
[2020-03-10] MEDS: ENOXAPARIN 40 MG/0.4 ML INJ SUB-Q SCH (21:03)
[2020-03-11] MEDS: IPRATROPIUM/ALBUTEROL SULFATE 3 ML AMPUL.NEB IH SCH ×5 (01:57→20:49)
[2020-03-11] MEDS: BUDESONIDE 0.25 MG/2 ML NEBU IH SCH ×2 (06:33→08:26)
[2020-03-11] MEDS: ARFORMOTEROL 15 MCG/2 ML NEBU IH SCH ×3 (06:33→20:47)
[2020-03-11] MEDS ORDERED: BUDESONIDE 0.25 MG/2 ML NEBU IH SCH (08:24)
[2020-03-11] MEDS: predniSONE 20 MG TAB PO SCH (09:05)
[2020-03-11] MEDS: oxyCODONE /ACETAMINOPHEN 5-325MG TAB PO PRN ×2 (09:06→20:06)
[2020-03-11] MEDS: levoFLOXacin 500 MG TAB PO SCH (09:06)
[2020-03-11] MEDS: amLODIPine 5 MG TAB PO SCH (09:06)
[2020-03-11] MEDS: PROMETHAZINE/CODEINE 6.25-10 MG ORAL LIQD 5 ML PO PRN ×2 (09:12→20:07)
--- NOTE | 2020-03-11 09:40 | Progress Note ---
Assessment and Plan - Patient Problems (1) Acute bronchitis Current Visit: Yes Status: Acute Plan to address problem: Continue pulmonary hygiene Continue pulmonary regimen P.o. Levaquin (2) COPD exacerbation Current Visit: Yes Status: Acute Plan to address problem: Patient was hypoxic in the ED and refused her BiPAP however marked improvement was noted on Ventimask Supplemental oxygen as needed Corey Campbell, Kevin scheduled IV steroid therapy, changed to PO Pulmonary consult Pulmonary hygiene PO Levaquin (3) Acute respiratory failure with hypoxemia Current Visit: Yes Status: Acute Plan to address problem: On presentation patient was satting in the 80s on room air in the ED Supplemental oxygen as needed Pulmonary hygiene Trend SPO2 (4) COVID-19 Current Visit: Yes Status: Ruled-out Plan to address problem: 03/08 COVID-19 PCR negative (5) Hyponatremia Current Visit: Yes Status: Resolved Plan to address problem: Admit sodium on 03/04 was 137 03/07 and 03/08 sodium 136, 03/09 Na 138 Slight decrease Continue to monitor neuro checks Trend BMP (6) Hypochloremia Current Visit: Yes Status: Acute Plan to address problem: Admit chloride 95.2, 03/07 92.8, 03/08 91.2, 03/09 94.9 Continue to monitor Trend BMP (7) Hypertension Current Visit: Yes Status: Chronic Plan to address problem: Home medications reviewed, patient has no home medications listed, will ask nurse to update 03/08 started on Amlodipine low-dose, titrate as needed - 03/11, started on metoprolol for persistent tachycardia As needed IV hydralazine for SBP greater than 160 Blood pressure monitor per protocol (8) DVT prophylaxis Current Visit: Yes Status: Acute Plan to address problem: SCDs to bilateral extremities while in bed Lovenox subcu History Interval history: 59-year-old -Prydeinig female with HTN, COPD, current cigarette smoker of 1 PPD presented to the emergency department on 03/05 with complaints of short ness of breath ongoing for 2 days with an associated nonproductive cough, chest tightness and without improvement with 10 days of treatment. Patient states that she was discharged from OSH few days before presentation. Upon arrival to the emergency department she had acute hypoxemic respiratory failure with SPO2 in the 80s on room air. She refused to be placed on BiPAP and refused ABG however she had nebulizing treatments, IV steroids and IV magnesium and was placed on a Ventimask with significant improvement. Patient was admitted to the hospital with COPD exacerbation and acute hypoxic respiratory failure. Today the patient remains tachycardiac and she was initiated on Metoprolol. We will observe for one day and possible DC tomorrow. 03/05: patient remained on the Ventimask and continue to refuse her BiPAP and ABG. 03/06: Ventimask 40% / 15 L, pulmonary consulted 03/07: COVID-19 PCR (-), on ventimask 03/08: continues to be wheezing, Levaquin 500 p.o. daily started 03/09: continues to be wheezing. 03/10: Patient still wheezing and tachypneic, Low-grade fever, Hospitalist Physical - Constitutional Vitals: Temp Pulse Resp BP Pulse Ox 99 F 94 H 18 97/63 100 03/11/20 06:06 03/11/20 06:33 03/11/20 06:33 03/11/20 06:04 03/11/20 06:04 General appearance: Present: no acute distress, well-nourished - EENT Eyes: Present: PERRL, EOM intact ENT: hearing intact, clear oral mucosa - Neck Neck: Present: supple, normal ROM - Respiratory Respiratory effort: normal Respiratory: bilateral: wheezing - Cardiovascular Rhythm: regular Heart Sounds: Present: S1 & S2. Absent: systolic murmur, diastolic murmur - Extremities Extremities: no ischemia, pulses intact, pulses symmetrical, No edema, normal temperature, normal color, Full ROM Peripheral Pulses: within normal limits - Abdominal General gastrointestinal: soft, non-tender, non-distended, normal bowel sounds - Integumentary Integumentary: Present: clear, warm, dry - Psychiatric Psychiatric: appropriate mood/affect, cooperative - Neurologic Neurologic: CNII-XII intact, no focal deficits, moves all extremities - Allied Health Allied health notes reviewed: nursing, RT Results - Labs CBC & Chem 7: 03/07/20 06:09 03/11/20 10:13 Labs: Laboratory Last Values WBC 8.1 K/mm3 (4.5-11.0) 03/07/20 06:09 RBC 4.57 M/mm3 (3.65-5.03) 03/07/20 06:09 Hgb 13.3 gm/dl (10.1-14.3) 03/07/20 06:09 Hct 40.0 % (30.3-42.9) 03/07/20 06:09 MCV 88 fl (79-97) 03/07/20 06:09 MCH 29 pg (28-32) 03/07/20 06:09 MCHC 33 % (30-34) 03/07/20 06:09 RDW 14.8 % (13.2-15.2) 03/07/20 06:09 Plt Count 275 K/mm3 (140-440) 03/07/20 06:09 Lymph % (Auto) 5.7 % (13.4-35.0) L 03/07/20 06:09 [place] % (Auto) 4.1 % (0.0-7.3) 03/07/20 06:09 Eos % (Auto) 0.0 % (0.0-4.3) 03/07/20 06:09 Baso % (Auto) 0.3 % (0.0-1.8) 03/07/20 06:09 Lymph # (Auto) 0.5 K/mm3 (1.2-5.4) L 03/07/20 06:09 [place] # (Auto) 0.3 K/mm3 (0.0-0.8) 03/07/20 06:09 Eos # (Auto) 0.0 K/mm3 (0.0-0.4) 03/07/20 06:09 Baso # (Auto) 0.0 K/mm3 (0.0-0.1) 03/07/20 06:09 Seg Neutrophils % 89.9 % (40.0-70.0) H 03/07/20 06:09 Seg Neutrophils # 7.2 K/mm3 (1.8-7.7) 03/07/20 06:09 ABG pH 7.372 pH Units (7.350-7.450) 03/07/20 18:25 ABG pCO2 61.6 mm Hg 03/07/20 18:25 ABG pO2 96.2 mm Hg (80.0-90.0) H 03/07/20 18:25 ABG HCO3 35.0 mmol/L (20.0-26.0) H 03/07/20 18:25 ABG O2 Saturation 97.0 % (95.0-99.0) 03/07/20 18:25 ABG O2 Content 18.4 (0.0-44) 03/07/20 18:25 ABG Base Excess 7.6 mmol/L (-2.0-3.0) H 03/07/20 18:25 ABG Hemoglobin 13.7 gm/dl (12.0-16.0) 03/07/20 18:25 ABG Carboxyhemoglobin 1.2 % (0.0-5.0) 03/07/20 18:25 ABG Methemoglobin 0.5 % (0.0-1.5) 03/07/20 18:25 Oxyhemoglobin 95.4 % (95.0-99.0) 03/07/20 18:25 FiO2 31 % 03/07/20 18:25 Sodium 138 mmol/L (137-145) 03/09/20 04:27 Potassium 4.7 mmol/L (3.6-5.0) 03/09/20 04:27 Chloride 94.9 mmol/L (98-107) L 03/09/20 04:27 Carbon Dioxide 34 mmol/L (22-30) H 03/09/20 04:27 Anion Gap 14 mmol/L 03/09/20 04:27 BUN 22 mg/dL (7-17) H 03/09/20 04:27 Creatinine 0.7 mg/dL (0.6-1.2) 03/09/20 04:27 Estimated GFR > 60 ml/min 03/09/20 04:27 BUN/Creatinine Ratio 31 % 03/09/20 04:27 Glucose 150 mg/dL (65-100) H 03/09/20 04:27 Calcium 9.6 mg/dL (8.4-10.2) 03/09/20 04:27 Total Bilirubin 0.40 mg/dL (0.1-1.2) 03/04/20 17:22 AST 21 units/L (5-40) 03/04/20 17:22 ALT 16 units/L (7-56) 03/04/20 17:22 Alkaline Phosphatase 94 units/L (35-129) 03/04/20 17:22 Total Protein 7.4 g/dL (6.3-8.2) 03/04/20 17:22 Albumin 4.4 g/dL (3.9-5) 03/04/20 17:22 Albumin/Globulin Ratio 1.5 % 03/04/20 17:22 Coronavirus (PCR) Negative (Negative) 03/08/20 Unknown Espinoza/IV: Voiding Method Toilet IV Catheter Type [Right Hand] INT / Saline Lock IV Catheter Type [Left Hand] INT / Saline Lock Active Medications - Current Medications Current Medications: Generic Name Dose Route Start Last Admin Trade Name Freq PRN Reason Stop Dose Admin Acetaminophen 650 mg 03/04/20 22:19 Tylenol PO Q4H PRN Pain MILD(1-3)/Fever >100.5/CHONG Albuterol/Ipratropium 1 ampul 03/06/20 20:00 03/11/20 08:24 Duoneb *Not For Prn Use* IH Not Given Q6HRT [facility] Amlodipine Besylate 2.5 mg 03/08/20 20:00 03/11/20 09:06 Amlodipine PO 2.5 mg QDAY [facility] Administration Arformoterol Tartrate 15 mcg 03/06/20 11:15 03/11/20 08:23 Brovana Nebu IH Not Given Q12HRT [facility] Benzonatate 100 mg 03/06/20 11:11 Tessalon Perles PO Q8HR PRN Cough Budesonide 0.5 mg 03/11/20 08:30 Pulmicort IH Q12HRT [facility] Cyclobenzaprine HCl 10 mg 03/10/20 18:48 03/10/20 21:01 Flexeril PO 10 mg Q8H PRN Administration Muscle Spasm Enoxaparin Sodium 40 mg 03/05/20 22:00 03/10/20 21:03 Enoxaparin SUB-Q Not Given QDAY@2200 [facility] Protocol Hydralazine HCl 10 mg 03/04/20 22:54 Apresoline IV Q4HR PRN Blood Pressure Levofloxacin 500 mg 03/08/20 10:00 03/11/20 09:06 Levaquin PO 03/12/20 12:00 500 mg Q24HR LEE Administration Magnesium Hydroxide 30 ml 03/04/20 22:19 Milk Of Magnesia PO Q4H PRN Constipation Melatonin 5 mg 03/09/20 23:57 03/10/20 22:42 Melatonin PO 5 mg QHS PRN Administration Sleep Metoprolol Tartrate 25 mg 03/11/20 10:00 Metoprolol PO Q12HR LEE Ondansetron HCl 4 mg 03/04/20 22:19 Zofran IV Q8H PRN Nausea And Vomiting Oxycodone/Acetaminophen 1 tab 03/05/20 17:47 03/11/20 09:06 Percocet 5/325 PO 1 tab Q6H PRN Administration Pain, Moderate (4-6) Prednisone 40 mg 03/11/20 10:00 03/11/20 09:05 Deltasone PO 40 mg QDAY LEE Administration Promethazine HCl/Codeine 5 ml 03/06/20 11:10 03/11/20 09:12 Phenergan/Codeine 6.25-10 Mg/5ml PO 5 ml Q6H PRN Administration Cough Sodium Chloride 10 ml 03/05/20 10:00 03/11/20 09:08 Sodium Chloride Flush Syringe 10 Ml IV 10 ml BID LEE Administration Sodium Chloride 10 ml 03/04/20 22:19 Sodium Chloride Flush Syringe 10 Ml IV PRN PRN LINE FLUSH
[2020-03-11] MEDS ORDERED: METOPROLOL TARTRATE 25 MG TAB PO SCH (10:00)
[2020-03-11] MEDS ORDERED: METOPROLOL TARTRATE 50 MG TAB PO SCH (10:00)
[2020-03-11] MEDS: BUDESONIDE 0.5 MG/2 ML NEBU IH SCH ×2 (10:29→20:47)
[2020-03-11 11:15] LABS: BUN/Creatinine Ratio 33; Blood Urea Nitrogen 26 mg/dL (7-17); Calcium 9.2 mg/dL (8.4-10.2); Hemolysis Index 7
--- NOTE | 2020-03-11 20:10 | Progress Note ---
Assessment and Plan Imp: 1. COPD exac. 2. Acute bronchitis 3. Acute respiratory failure, hypoxia 4. Nicotine dependence, cigarettes 5. Chest pain Rec: 1. Finishing Levaquin on 03/12/2020; cont. Prednisone 40mg daily, taper at d/c; cont. Bronchodilators 2. Covid-19 PCR neg 3. DVT PPx 4. Stop smoking 5. Outpatient PFTs 6. Repeat CXR given chest pain Plan of care reviewed w/ patient, she understands/agrees Subjective Date of service: 03/11/20 Principal diagnosis: COPD exac. Interval history: No events. Awake, alert, on RA. SOB much better. C/o pain L chest with b reathing. Active Medications Acetaminophen (Tylenol) 650 mg PO Q4H PRN PRN Reason: Pain MILD(1-3)/Fever >100.5/CHONG Albuterol/Ipratropium (Duoneb *Not For Prn Use*) 1 ampul IH TIDRT [facility] Amlodipine Besylate (Amlodipine) 2.5 mg PO QDAY [facility] Last Admin: 03/11/20 09:06 Dose: 2.5 mg Documented by: Arformoterol Tartrate (Brovana Nebu) 15 mcg IH Q12HRT [facility] Last Admin: 03/11/20 08:23 Dose: Not Given Documented by: Benzonatate (Tessalon Perles) 100 mg PO Q8HR PRN PRN Reason: Cough Budesonide (Pulmicort) 0.5 mg IH Q12HRT [facility] Last Admin: 03/11/20 10:29 Dose: Not Given Documented by: Cyclobenzaprine HCl (Flexeril) 10 mg PO Q8H PRN PRN Reason: Muscle Spasm Last Admin: 03/10/20 21:01 Dose: 10 mg Documented by: Enoxaparin Sodium (Enoxaparin) 40 mg SUB-Q QDAY@2200 [facility]; Protocol Last Admin: 03/10/20 21:03 Dose: Not Given Documented by: Hydralazine HCl (Apresoline) 10 mg IV Q4HR PRN PRN Reason: Blood Pressure Levofloxacin (Levaquin) 500 mg PO Q24HR [facility] Stop: 03/12/20 12:00 Last Admin: 03/11/20 09:06 Dose: 500 mg Documented by: Magnesium Hydroxide (Milk Of Magnesia) 30 ml PO Q4H PRN PRN Reason: Constipation Melatonin (Melatonin) 5 mg PO QHS PRN PRN Reason: Sleep Last Admin: 03/10/20 22:42 Dose: 5 mg Documented by: Ondansetron HCl (Zofran) 4 mg IV Q8H PRN PRN Reason: Nausea And Vomiting Oxycodone/Acetaminophen (Percocet 5/325) 1 tab PO Q6H PRN PRN Reason: Pain, Moderate (4-6) Last Admin: 03/11/20 20:06 Dose: 1 tab Documented by: Prednisone (Deltasone) 40 mg PO QDAY [facility] Last Admin: 03/11/20 09:05 Dose: 40 mg Documented by: Promethazine HCl/Codeine (Phenergan/Codeine 6.25-10 Mg/5ml) 5 ml PO Q6H PRN PRN Reason: Cough Last Admin: 03/11/20 20:07 Dose: 5 ml Documented by: Sodium Chloride (Sodium Chloride Flush Syringe 10 Ml) 10 ml IV BID [facility] Last Admin: 03/11/20 09:08 Dose: 10 ml Documented by: Sodium Chloride (Sodium Chloride Flush Syringe 10 Ml) 10 ml IV PRN PRN PRN Reason: LINE FLUSH Objective Vital Signs - 12hr 03/11/20 03/11/20 11:41 14:36 Pulse Rate 95 H Pulse Rate [ 94 H Posterior Bilateral Throughout] Respiratory 20 Rate Respiratory 20 Rate [Posterior Bilateral Throughout] Blood Pressure 107/68 O2 Sat by Pulse 94 Oximetry Constitutional: no acute distress, alert Eyes: non-icteric ENT: oropharynx moist Neck: supple Ascultation: Bilateral: wheezes (mild) Tactile fremitus: Right: other Cardiovascular: regular rate and rhythm Gastrointestinal: normoactive bowel sounds, soft, non-tender, non-distended Integumentary: normal Extremities: no cyanosis Neurologic: normal mental status, non-focal exam Psychiatric: mood appropriate, affect normal CBC and BMP: 03/07/20 06:09 03/11/20 10:13 ABG, PT/INR, D-dimer: ABG ABG pH 7.372 pH Units (7.350-7.450) 03/07/20 18:25 ABG pCO2 61.6 mm Hg 03/07/20 18:25 ABG pO2 96.2 mm Hg (80.0-90.0) H 03/07/20 18:25 ABG O2 Saturation 97.0 % (95.0-99.0) 03/07/20 18:25 Abnormal lab findings: Abnormal Labs 03/04/20 03/04/20 03/07/20 17:22 17:22 06:09 Hct 43.8 H Lymph % (Auto) 5.7 L Lymph # (Auto) 0.5 L Seg Neutrophils % 74.2 H 89.9 H ABG pO2 ABG HCO3 ABG Base Excess Sodium Chloride 95.2 L Carbon Dioxide 31 H BUN 18 H Glucose 03/07/20 03/07/20 03/08/20 06:09 18:25 10:54 Hct Lymph % (Auto) Lymph # (Auto) Seg Neutrophils % ABG pO2 96.2 H ABG HCO3 35.0 H ABG Base Excess 7.6 H Sodium 136 L 136 L Chloride 92.8 L 91.2 L Carbon Dioxide 36 H 37 H BUN 18 H 20 H Glucose 161 H 204 H 03/09/20 03/11/20 04:27 10:13 Hct Lymph % (Auto) Lymph # (Auto) Seg Neutrophils % ABG pO2 ABG HCO3 ABG Base Excess Sodium Chloride 94.9 L 94.4 L Carbon Dioxide 34 H 33 H BUN 22 H 26 H Glucose 150 H 105 H Chest x-ray: report reviewed, image reviewed
--- NOTE | 2020-03-11 21:14 | XRay Report ---
CHEST 2 VIEWS INDICATION / CLINICAL INFORMATION: chest pain. COMPARISON: 03/04/2020 FINDINGS: SUPPORT DEVICES: None. HEART / MEDIASTINUM: No significant abnormality. LUNGS / PLEURA: No significant pulmonary or pleural abnormality. No pneumothorax. ADDITIONAL FINDINGS: No significant additional findings. IMPRESSION: 1. No acute findings. No significant interval change. Signer Name: Michael Billy MD Signed: 03/11/2020 9:09 PM Workstation Name: [id number]
[2020-03-11] MEDS: MELATONIN 5 MG TAB PO PRN (21:41)
[2020-03-11] MEDS: ENOXAPARIN 40 MG/0.4 ML INJ SUB-Q SCH (21:44)
[2020-03-12 05:28] LABS: BUN/Creatinine Ratio 28; Blood Urea Nitrogen 25 mg/dL (7-17); Calcium 9.1 mg/dL (8.4-10.2); Hemolysis Index 72
[2020-03-12] MEDS: ARFORMOTEROL 15 MCG/2 ML NEBU IH SCH (08:48)
[2020-03-12] MEDS: BUDESONIDE 0.5 MG/2 ML NEBU IH SCH (08:49)
[2020-03-12] MEDS: IPRATROPIUM/ALBUTEROL SULFATE 3 ML AMPUL.NEB IH SCH ×2 (08:49→13:22)
[2020-03-12] MEDS: levoFLOXacin 500 MG TAB PO SCH (10:01)
[2020-03-12] MEDS: amLODIPine 5 MG TAB PO SCH (10:01)
[2020-03-12] MEDS: predniSONE 20 MG TAB PO SCH (10:01)
[2020-03-12] MEDS: PROMETHAZINE/CODEINE 6.25-10 MG ORAL LIQD 5 ML PO PRN (10:02)
--- NOTE | 2020-03-12 15:47 | Discharge Summary ---
Providers - Providers Date of Admission: 03/06/20 07:47 Date of discharge: 03/12/20 Attending physician: HUNTER BERRY 03/06/20 08:18 Consult to Physician [CONS] Routine Comment: Consulting Provider: CLYDE REYNOLDS Physician Instructions: Reason For Exam: resp failure Primary care physician: PRACTICAL NURSE CLINICAL COORDINATOR Hospitalization Condition: Stable Hospital course: History Interval history: 59-year-old -[place] female with HTN, COPD, current cigarette smoker of 1 PPD presented to the emergency department on 03/05 with complaints of shortness of breath ongoing for 2 days with an associated nonproductive cough, chest tightness and without improvement with 10 days of treatment. Patient states that she was discharged from OSH few days before presentation. Upon arrival to the emergency department she had acute hypoxemic respiratory failure with SPO2 in the 80s on room air. She refused to be placed on BiPAP and refused ABG however she had nebulizing treatments, IV steroids and IV magnesium and was placed on a Ventimask with significant improvement. Patient was admitted to the hospital with COPD exacerbation and acute hypoxic respiratory failure. Today the patient remains tachycardiac and she was initiated on Metoprolol. We will observe for one day and possible DC tomorrow. 03/05: patient remained on the Ventimask and continue to refuse her BiPAP and ABG. 03/06: Ventimask 40% / 15 L, pulmonary consulted 03/07: COVID-19 PCR (-), on ventimask 03/08: continues to be wheezing, Levaquin 500 p.o. daily started 03/09: continues to be wheezing. 03/10: Patient still wheezing and tachypneic, Low-grade fever, 03/11/2020 patient was not discharged because of tachycardia and also patient still wheezing 03/12/2020 Tachycardia better wheezing better as being discharged ++ (1) Acute bronchitis Current Visit: Yes Status: Acute Plan to address problem: Continue pulmonary hygiene Continue pulmonary regimen P.o. Levaquin Finish the course of antibiotics today (2) COPD exacerbation Current Visit: Yes Status: Acute Plan to address problem: Patient was hypoxic in the ED and refused her BiPAP however marked improvement was noted on Ventimask Supplemental oxygen as needed Corey Campbell DuoNeb scheduled IV steroid therapy, changed to PO Pulmonary consult Pulmonary hygiene PO Levaquin Discharge and nebulizer treatments and is tapering dose of prednisone Dosepak (3) Acute respiratory failure with hypoxemia Current Visit: Yes Status: Acute Plan to address problem: On presentation patient was satting in the 80s on room air in the ED Supplemental oxygen as needed Pulmonary hygiene Trend SPO2 Sats are normal on room air (4) COVID-19 Current Visit: Yes Status: Ruled-out Plan to address problem: 03/08 COVID-19 PCR negative (5) Hyponatremia Current Visit: Yes Status: Resolved Plan to address problem: Admit sodium on 03/04 was 137 03/07 and 03/08 sodium 136, 03/09 Na 138 Slight decrease Continue to monitor neuro checks Trend BMP Sodium level normal (6) Hypochloremia Current Visit: Yes Status: Acute Plan to address problem: Admit chloride 95.2, 03/07 92.8, 03/08 91.2, 03/09 94.9 Continue to monitor Trend BMP Chloride level normal (7) Hypertension Current Visit: Yes Status: Chronic Plan to address problem: Home medications reviewed, patient has no home medications listed, will ask nurse to update 03/08 started on Amlodipine low-dose, titrate as needed - 03/11, started on metoprolol for persistent tachycardia As needed IV hydralazine for SBP greater than 160 Blood pressure monitor per protocol (8) DVT prophylaxis Current Visit: Yes Status: Acute Plan to address problem: SCDs to bilateral extremities while in bed Lovenox subcu Disposition: DC-01 TO HOME OR SELFCARE - Discharge Diagnoses (1) Acute respiratory failure with hypoxemia Status: Acute (2) Acute bronchitis Status: Acute (3) COPD exacerbation Status: Acute (4) Hyponatremia Status: Resolved (5) DVT prophylaxis Status: Acute Core Measure Documentation - Palliative Care Palliative Care/ Comfort Measures: Not Applicable - Core Measures Any of the following diagnoses?: none Exam - Constitutional Vitals: Temp Pulse Resp BP Pulse Ox 98.9 F 102 H 18 133/84 96 03/12/20 11:12 03/12/20 13:25 03/12/20 13:25 03/12/20 11:12 03/12/20 11:12 General appearance: Present: no acute distress, well-nourished - EENT Eyes: Present: PERRL ENT: hearing intact, clear oral mucosa - Neck Neck: Present: supple, normal ROM - Respiratory Respiratory effort: normal Respiratory: bilateral: CTA - Cardiovascular Heart rate: 78 Rhythm: regular Heart Sounds: Present: S1 & S2. Absent: rub, click - Extremities Extremities: pulses symmetrical, No edema Peripheral Pulses: within normal limits - Abdominal General gastrointestinal: Present: soft, non-tender, non-distended, normal bowel sounds Female genitourinary: Present: normal - Rectal Rectal Exam: deferred - Integumentary Integumentary: Present: clear, warm, dry - Musculoskeletal Musculoskeletal: gait normal, strength equal bilaterally - Psychiatric Psychiatric: appropriate mood/affect, intact judgment & insight - Neurologic Neurologic: CNII-XII intact, moves all extremities - Allied Health Allied health notes reviewed: nursing, case management Plan Activity: no restrictions Diet: low salt Follow up with: PRIMARY CARE, [Primary Care Provider] - 3-5 Days JORGE A MILLARD MD [Staff Physician] - 7 Days HUNTER BERRY MD [Staff Physician] - 7 Days
--- NOTE | 2020-03-12 16:04 | Progress Note ---
Assessment and Plan Imp: 1. COPD exac. 2. Acute bronchitis 3. Acute respiratory failure, hypoxia 4. Nicotine dependence, cigarettes 5. Chest pain Rec: 1. Finishing Levaquin on 03/12/2020; cont. Prednisone 40mg daily, taper at d/c; cont. Bronchodilators 2. Covid-19 PCR neg 3. DVT PPx 4. Stop smoking 5. Outpatient PFTs 6. CXR negative 03/11/2020 7. F/u with us 1-2 weeks after d/c Plan of care reviewed w/ patient, she understands/agrees Subjective Date of service: 03/12/20 Principal diagnosis: COPD exac. Interval history: No events. Awake, alert, on RA. SOB much better. C/o pain L chest with coughing. Active Medications Acetaminophen (Tylenol) 650 mg PO Q4H PRN PRN Reason: Pain MILD(1-3)/Fever >100.5/CHONG Albuterol/Ipratropium (Duoneb *Not For Prn Use*) 1 ampul IH TIDRT [facility] Last Admin: 03/12/20 13:22 Dose: 1 ampul Documented by: Amlodipine Besylate (Amlodipine) 2.5 mg PO QDAY [facility] Last Admin: 03/12/20 10:01 Dose: 2.5 mg Documented by: Arformoterol Tartrate (Brovana Nebu) 15 mcg IH Q12HRT [facility] Last Admin: 03/12/20 08:48 Dose: 15 mcg Documented by: Benzonatate (Tessalon Perles) 100 mg PO Q8HR PRN PRN Reason: Cough Last Admin: 03/12/20 00:23 Dose: 100 mg Documented by: Budesonide (Pulmicort) 0.5 mg IH Q12HRT [facility] Last Admin: 03/12/20 08:49 Dose: 0.5 mg Documented by: Cyclobenzaprine HCl (Flexeril) 10 mg PO Q8H PRN PRN Reason: Muscle Spasm Last Admin: 03/10/20 21:01 Dose: 10 mg Documented by: Enoxaparin Sodium (Enoxaparin) 40 mg SUB-Q QDAY@2200 LEE; Protocol Last Admin: 03/11/20 21:44 Dose: Not Given Documented by: Hydralazine HCl (Apresoline) 10 mg IV Q4HR PRN PRN Reason: Blood Pressure Magnesium Hydroxide (Milk Of Magnesia) 30 ml PO Q4H PRN PRN Reason: Constipation Last Admin: 03/12/20 15:36 Dose: 30 ml Documented by: Melatonin (Melatonin) 5 mg PO QHS PRN PRN Reason: Sleep Last Admin: 03/11/20 21:41 Dose: 5 mg Documented by: Ondansetron HCl (Zofran) 4 mg IV Q8H PRN PRN Reason: Nausea And Vomiting Oxycodone/Acetaminophen (Percocet 5/325) 1 tab PO Q6H PRN PRN Reason: Pain, Moderate (4-6) Last Admin: 03/11/20 20:06 Dose: 1 tab Documented by: Prednisone (Deltasone) 40 mg PO QDAY [facility] Last Admin: 03/12/20 10:01 Dose: 40 mg Documented by: Promethazine HCl/Codeine (Phenergan/Codeine 6.25-10 Mg/5ml) 5 ml PO Q6H PRN PRN Reason: Cough Last Admin: 03/12/20 10:02 Dose: 5 ml Documented by: Sodium Chloride (Sodium Chloride Flush Syringe 10 Ml) 10 ml IV BID [facility] Last Admin: 03/12/20 10:02 Dose: 10 ml Documented by: Sodium Chloride (Sodium Chloride Flush Syringe 10 Ml) 10 ml IV PRN PRN PRN Reason: LINE FLUSH Objective Vital Signs - 12hr 03/12/20 03/12/20 03/12/20 04:28 08:45 11:12 Temperature 98.9 F 98.9 F Pulse Rate 103 H Pulse Rate [ 96 H Anterior Bilateral Throughout] Pulse Rate [ 100 H Posterior Bilateral Throughout] Respiratory 20 18 Rate Respiratory 18 Rate [Anterior Bilateral Throughout] Respiratory 20 Rate [Posterior Bilateral Throughout] Blood Pressure 122/80 133/84 O2 Sat by Pulse 96 Oximetry 03/12/20 13:25 Temperature Pulse Rate Pulse Rate [ Anterior Bilateral Throughout] Pulse Rate [ 102 H Posterior Bilateral Throughout] Respiratory Rate Respiratory Rate [Anterior Bilateral Throughout] Respiratory 18 Rate [Posterior Bilateral Throughout] Blood Pressure O2 Sat by Pulse Oximetry Constitutional: no acute distress, alert Eyes: non-icteric ENT: oropharynx moist Neck: supple Ascultation: Bilateral: wheezes (mild) Cardiovascular: regular rate and rhythm Gastrointestinal: normoactive bowel sounds, soft, non-tender, non-distended Integumentary: normal Extremities: no cyanosis Neurologic: normal mental status, non-focal exam Psychiatric: mood appropriate, affect normal CBC and BMP: 03/07/20 06:09 03/12/20 04:35 ABG, PT/INR, D-dimer: ABG ABG pH 7.372 pH Units (7.350-7.450) 03/07/20 18:25 ABG pCO2 61.6 mm Hg 03/07/20 18:25 ABG pO2 96.2 mm Hg (80.0-90.0) H 03/07/20 18:25 ABG O2 Saturation 97.0 % (95.0-99.0) 03/07/20 18:25 Abnormal lab findings: Abnormal Labs 03/04/20 03/04/20 03/07/20 17:22 17:22 06:09 Hct 43.8 H Lymph % (Auto) 5.7 L Lymph # (Auto) 0.5 L Seg Neutrophils % 74.2 H 89.9 H ABG pO2 ABG HCO3 ABG Base Excess Sodium Chloride 95.2 L Carbon Dioxide 31 H BUN 18 H Glucose 03/07/20 03/07/20 03/08/20 06:09 18:25 10:54 Hct Lymph % (Auto) Lymph # (Auto) Seg Neutrophils % ABG pO2 96.2 H ABG HCO3 35.0 H ABG Base Excess 7.6 H Sodium 136 L 136 L Chloride 92.8 L 91.2 L Carbon Dioxide 36 H 37 H BUN 18 H 20 H Glucose 161 H 204 H 03/09/20 03/11/20 03/12/20 04:27 10:13 04:35 Hct Lymph % (Auto) Lymph # (Auto) Seg Neutrophils % ABG pO2 ABG HCO3 ABG Base Excess Sodium Chloride 94.9 L 94.4 L 94.1 L Carbon Dioxide 34 H 33 H 32 H BUN 22 H 26 H 25 H Glucose 150 H 105 H 123 H Chest x-ray: report reviewed, image reviewed (clear lungs on 03/11/2020)
[2020-03-12 18:32] VITALS: BP 121/79
== END 2020-03-12 18:35 | disposition home or self-care (01) | DRG 189 ==
LOC: ED 17:02 → 3A 22:05 → 3B-SURG 22:20 → 3A 03-05 17:07 → OBSVTOIN 03-06 07:47 → 3A 03-10 13:57
PROVIDERS: ADMIT Internal Medicine Geriatric Medicine; ATTEND Internal Medicine
DX: J96.01 Acute respiratory failure with hypoxia (principal); J44.1 Chronic obstructive pulmonary disease with (acute) exacerbation; J20.9 Acute bronchitis, unspecified; I10 Essential (primary) hypertension; J45.909 Unspecified asthma, uncomplicated; G43.909 Migraine, unspecified, not intractable, without status migrainosus; F17.210 Nicotine dependence, cigarettes, uncomplicated; Z03.818 Encounter for observation for suspected exposure to other biological agents ruled out; E87.1 Hypo-osmolality and hyponatremia; E87.8 Other disorders of electrolyte and fluid balance, not elsewhere classified; J96.02 Acute respiratory failure with hypercapnia
CPT/HCPCS: 36415; 71045; 71046; 80048; 80053; 82803; 85025; 90471; 94640; 94644; 94760; 96374; G0378; J1170; J1650; J1956; J2920; J7512; U0003